=== PATIENT | male | born 1990 | race Caucasian/White ===

== ENCOUNTER 2021-09-20 12:37 | Emergency (ER) | payer MEDICARE, OTHER ==
[2021-09-20 12:46] VITALS: BP 136/86; PULSE 111; RESP 18; TEMP 98.6
--- NOTE | 2021-09-20 12:54 | ED ---
Psych HPI - General Source: patient, EMS, RN notes reviewed Mode of arrival: EMS Limitations: no limitations <Pierre Tompkins - Last Filed: 09/20/21 12:52> <Michael Lagos - Last Filed: 09/20/21 17:17> - General Chief Complaint: Psychiatric Symptoms Stated Complaint: Mental Health Time Seen by Provider: 09/20/21 12:44 - History of Present Illness Initial Comments: 31-year-old male presents emergency Department via EMS chief complaint of depression, suicidal ideation. Patient is not very forthcoming information. He states that he cut his left wrist because he wanted a ride to the hospital he states he is soft and psychiatrists he will not discuss what is wrong with him. Patient denies any alcohol abuse but disease alcohol recent, she states he smoked marijuana. Patient denies any chest pain patient denies any fevers or chills patient offers no complaints. (Pierre Tompkins) - Related Data Allergies Allergy/AdvReac Type Severity Reaction Status Date / Time No Known Allergies Allergy Verified 09/20/21 13:41 Review of Systems ROS Other: All systems not noted in ROS Statement are negative. <Pierre Tompkins - Last Filed: 09/20/21 12:52> ROS Other: All systems not noted in ROS Statement are negative. <Michael Lagos - Last Filed: 09/20/21 17:17> ROS Statement: Those systems with pertinent positive or pertinent negative responses have been documented in the HPI. Past Medical History Past Medical History: Hypertension History of Any Multi-Drug Resistant Organisms: None Reported Past Surgical History: Bowel Resection Past Psychological History: Anxiety, Depression, Schizophrenia Smoking Status: Current every day smoker Past Alcohol Use History: Daily Past Drug Use History: Marijuana <Pierre Tompkins - Last Filed: 09/20/21 12:52> General Exam Limitations: no limitations General appearance: alert, in no apparent distress Head exam: Present: atraumatic, normocephalic, normal inspection Eye exam: Present: normal appearance, PERRL, EOMI. Absent: scleral icterus, conjunctival injection, periorbital swelling ENT exam: Present: normal exam, normal oropharynx, mucous membranes moist Neck exam: Present: normal inspection, full ROM. Absent: tenderness, meningismus, lymphadenopathy Respiratory exam: Present: normal lung sounds bilaterally. Absent: respiratory distress, wheezes, rales, rhonchi, stridor Cardiovascular Exam: Present: regular rate, normal rhythm, normal heart sounds. Absent: systolic murmur, diastolic murmur, rubs, gallop, clicks Extremities exam: Present: other (Left wrist there is a small superficial laceration) Neurological exam: Present: alert, oriented X3, motor sensory deficit Psychiatric exam: Present: depressed, flat affect Skin exam: Present: warm, dry, intact, normal color. Absent: rash <Pierre Tompkins - Last Filed: 09/20/21 12:52> Course Vital Signs 09/20/21 12:40 Temperature 98.6 F Pulse Rate 111 H Respiratory 18 Rate Blood Pressure 136/86 O2 Sat by Pulse 97 Oximetry Medical Decision Making <Michael Lagos - Last Filed: 09/20/21 17:17> - Medical Decision Making EPS evaluated the patient and determined the patient was safe to go home and the patient was in agreement with this. (Michael Lagos) Disposition <Pierre Tomkpins - Last Filed: 09/20/21 12:52> Is patient prescribed a controlled substance at d/c from ED?: No Time of Disposition: 17:17 <Michael Lagos - Last Filed: 09/20/21 17:17> Clinical Impression: Depression Disposition: HOME SELF-CARE Condition: Good Instructions (If sedation given, give patient instructions): Depression (ED) Referrals: Nonstaff,Physician [Primary Care Provider] - 1-2 days
[2021-09-20 17:46] LABS: Amphetamine Screen,Urine Not Detected (NotDetected); Barbiturate Screen,Urine Not Detected (NotDetected); Benzodiazepines Screen,Urine Not Detected (NotDetected); Cocaine Screen,Urine Not Detected (NotDetected); Methadone Screen, Urine Not Detected (NotDetected); Opiate Screen,Urine Not Detected (NotDetected); Oxycodone Screen, Urine Not Detected (NotDetected); Phencyclidine Screen,Urine Not Detected (NotDetected); Tricyclic Antidepressant,Urine Not Detected (NotDetected); Urn Cannabinoid Scrn Detected (NotDetected)
== END 2021-09-20 17:36 | disposition home or self-care (01) ==
LOC: EC 12:37
DX: F32.A Depression, unspecified (principal); I10 Essential (primary) hypertension; F17.200 Nicotine dependence, unspecified, uncomplicated
CPT/HCPCS: 80306; 82075; 99285

== ENCOUNTER 2022-12-07 15:29 | Emergency (ER) | payer MEDICARE, OTHER ==
[2022-12-07] MEDS ORDERED: PROPARACAINE 0.5% OPHTH DROPS 15 ML BTL LEFT EYE STA (15:31)
[2022-12-07] MEDS ORDERED: FLUORESCEIN STRIPS 1 MG STRIP LEFT EYE ONE (15:31)
--- NOTE | 2022-12-07 15:32 | ED ---
General Adult HPI - General Source: patient, RN notes reviewed Mode of arrival: ambulatory Limitations: no limitations <Pierre Tompkins - Last Filed: 12/07/22 15:31> - General Source: patient, RN notes reviewed Mode of arrival: ambulatory Limitations: no limitations <Mary Kwok - Last Filed: 12/08/22 00:13> - General Stated complaint: eye pain Time Seen by Provider: 12/07/22 15:31 - History of Present Illness Initial comments: 32-year-old male presents emergency from EMS chief complaint of left eye irritation. He states that his been rubbing his eyes significantly states his left eye is painful and states he feels like symptoms in his left eye. Patient denies any visual disturbance. He states is tearing, drainage at times. (Pierre Tompkins) 32-year-old male presents emergency department chief complaint of left eye irritation with associated eyelid redness and pain x2 days. He admits to yellow drainage from the eye and crusting when he wakes up in the morning. He reports no changes in his vision. Denies pain with eye movements. Denies fever, chills. (Mary Kwok) - Related Data Home Medications Medication Instructions Recorded Confirmed No Known Home Medications 09/20/21 09/20/21 Allergies Allergy/AdvReac Type Severity Reaction Status Date / Time No Known Allergies Allergy Verified 09/20/21 13:41 Review of Systems ROS Other: All systems not noted in ROS Statement are negative. <Pierre Tompkins - Last Filed: 12/07/22 15:31> ROS Other: All systems not noted in ROS Statement are negative. <Mary Kwok - Last Filed: 12/08/22 00:13> ROS Statement: Those systems with pertinent positive or pertinent negative responses have been documented in the HPI. Past Medical History Past Medical History: Hypertension History of Any Multi-Drug Resistant Organisms: None Reported Past Surgical History: Bowel Resection Past Psychological History: Anxiety, Depression, Schizophrenia Smoking Status: Current every day smoker Past Alcohol Use History: Daily Past Drug Use History: Marijuana <Pierre Tompkins - Last Filed: 12/07/22 15:31> General Exam <Pierre Tompkins - Last Filed: 12/07/22 15:31> Limitations: no limitations General appearance: alert, in no apparent distress Head exam: Present: atraumatic, normocephalic, normal inspection Eye exam: Present: PERRL, EOMI, conjunctival injection, periorbital swelling ENT exam: Present: normal exam, normal oropharynx Neck exam: Present: normal inspection. Absent: tenderness, meningismus, lymphadenopathy Respiratory exam: Present: normal lung sounds bilaterally. Absent: respiratory distress, wheezes, rales, rhonchi, stridor Cardiovascular Exam: Present: regular rate, normal rhythm, normal heart sounds. Absent: systolic murmur, diastolic murmur, rubs, gallop, clicks exam: Present: other (flesh colored papule with purulent drainage on right sided penile shaft). Absent: testicular tenderness, scrotal swelling Back exam: Present: normal inspection Neurological exam: Present: alert, oriented X3 Psychiatric exam: Present: normal affect, normal mood Skin exam: Present: warm, dry, intact, normal color. Absent: rash <Mary Kwok - Last Filed: 12/08/22 00:13> - General Exam Comments Initial Comments: Visual Physical Exam Vital signs reviewed General: Well-appearing, nontoxic, no acute distress. Head: Normocephalic, atraumatic Eyes: PERRLA, EOMI ENT: Airway patent Chest: Nonlabored breathing Skin: No visual rash, normal skin tone Neuro: Alert and oriented 3 Musculoskeletal: No gross abnormalities (Pierre Tompkins) Course Vital Signs 12/07/22 12/07/22 16:16 19:25 Temperature 98.3 F Pulse Rate 102 H 85 Respiratory 20 18 Rate Blood Pressure 114/78 112/69 O2 Sat by Pulse 98 98 Oximetry Medical Decision Making <Pierre Tompkins - Last Filed: 12/07/22 15:31> <Mary Kwok - Last Filed: 12/08/22 00:13> - Medical Decision Making I performed the quick note portion of this chart signed Pierre Tompkins PA-C (Pierre Tompkins) Was pt. sent in by a medical professional or institution ([facility], PACE ANALYST, urgent care, hospital, or jail...) When possible be specific @ -No Did you speak to anyone other than the patient for history (EMS, parent, family, police, friend...)? What history was obtained from this source @ -No Did you review nursing and triage notes (agree or disagree)? Why? @ -I reviewed and agree with nursing and triage notes Were old charts reviewed (outside hosp., previous admission, EMS record, old EKG, old radiological studies, urgent care reports/EKG's, jail records)? Report findings @ -No old charts were reviewed Differential Diagnosis (chest pain, altered mental status, abdominal pain women, abdominal pain men, vaginal bleeding, weakness, fever, dyspnea, syncope, headache, dizziness, GI bleed, back pain, seizure, CVA, palpatations, mental health, musculoskeletal)? @ -Conjunctivitis, iritis, preseptal cellulitis, orbital cellulitis, angle closure glaucoma, this list is not all inclusive EKG interpreted by me (3pts min.). @ -none X-rays interpreted by me (1pt min.). @ -None done CT interpreted by me (1pt min.). @ -None done U/S interpreted by me (1pt. min.). @ -None done What testing was considered but not performed or refused? (CT, X-rays, U/S, labs)? Why? @ -None What meds were considered but not given or refused? Why? @ -None Did you discuss the management of the patient with other professionals (professionals i.e. , PA, PACE ANALYST, lab, RT, psych nurse, social work therapist, roll capper, teacher, [employer] revenue officer, rn case management)? Give summary @ -No Was smoking cessation discussed for >3mins.? @ -No Was critical care preformed (if so, how long)? @ -No Were there social determinants of health that impacted care today? How? (Homelessness, low income, unemployed, alcoholism, drug addiction, transportation, low edu. Level, literacy, decrease access to med. care, fdc, rehab)? @ -No Was there de-escalation of care discussed even if they declined (Discuss DNR or withdrawal of care, Hospice)? DNR status @ -No What co-morbidities impacted this encounter? (DM, HTN, Smoking, COPD, CAD, Cancer, CVA, ARF, Chemo, Hep., AIDS, mental health diagnosis, sleep apnea, morbid obesity)? @ -None Was patient admitted / discharged? Hospital course, mention meds given and route, prescriptions, significant lab abnormalities, going to OR and other pertinent info. @ -Discharged. Patient presented to emergency department chief complaint of left eye discharge, erythema 2-3 days. He states that when he wakes up in the morning his eyes crusted shut and he admits to drainage throughout the day. No proptosis, denies pain with eye movements. Fluorescein staining preformed and there was no evidence of corneal abrasion or dendritic pattern. Left eye pressure 11. Patient also complains of a sore on his penis that he noticed today. He states that it is not draining. This was drained with 18-gauge needle, purulent drainage was obtained, and wound culture, HSV swab was sent. We will call the patient with the results of this testing. Patient was given a dose of Rocephin IM and azithromycin. Patient will be started on ciprofloxacin eyedrops every 6 hours and follow up with ophthalmology. Patient stable at time of discharge. Case discussed with my attending, Dr. Mallory who also evaluated the patient and agrees with plan. Undiagnosed new problem with uncertain prognosis? @ -No Drug Therapy requiring intensive monitoring for toxicity (Heparin, Nitro, Insulin, Cardizem)? @ -No Were any procedures done? @ -No Diagnosis/symptom? @ -bacterial conjunctivitis Acute, or Chronic, or Acute on Chronic? @ -acute Uncomplicated (without systemic symptoms) or Complicated (systemic symptoms)? @ -uncomplicated Side effects of treatment? @ -No Exacerbation, Progression, or Severe Exacerbation? @ -No Poses a threat to life or bodily function? How? (Chest pain, USA, PA, pneumonia, PE, COPD, DKA, ARF, appy, cholecystitis, CVA, Diverticulitis, Homicidal, Suicidal, threat to staff... and all critical care pts) @ -No (Mary Kwok) Disposition <Pierre Tompkins - Last Filed: 12/07/22 15:31> Is patient prescribed a controlled substance at d/c from ED?: No Time of Disposition: 19:55 <Mary Kwok - Last Filed: 12/08/22 00:13> Clinical Impression: Bacterial conjunctivitis Disposition: HOME SELF-CARE Condition: Stable Instructions (If sedation given, give patient instructions): Conjunctivitis (ED) Additional Instructions: Please follow up with ophthalmology. Instill 2 eye drops in left eye every 6 hours for 7 days. Return to the emergency department for new or worsening symptoms. Referrals: Eriberto Bowers MD [Primary Care Provider] - 1-2 days Ernesto Morris MD [STAFF PHYSICIAN] - 1-2 days Susan Thomson MD [STAFF PHYSICIAN] - 1-2 days Berto Storey MD [STAFF PHYSICIAN] - 1-2 days
[2022-12-07 16:28] VITALS: TEMP 98.3
[2022-12-07] MEDS ORDERED: CIPROFLOXACIN 0.3% OPHTH SOLN 5 ML BTL BOTH EYES STA (19:14)
[2022-12-07] MEDS ORDERED: cefTRIAXone 250 MG VIAL IM STA (19:51)
[2022-12-07] MEDS ORDERED: AZITHROMYCIN 500 MG TAB PO STA (19:51)
[2022-12-07 20:21] VITALS: BP 112/69; PULSE 85; RESP 18
== END 2022-12-07 20:22 | disposition home or self-care (01) ==
LOC: EC 15:29
DX: H10.9 Unspecified conjunctivitis (principal); F17.200 Nicotine dependence, unspecified, uncomplicated; F12.90 Cannabis use, unspecified, uncomplicated; I10 Essential (primary) hypertension; Z86.59 Personal history of other mental and behavioral disorders
CPT/HCPCS: 87529; 87070; 87205; 99283; 96372; J0696

== ENCOUNTER 2023-01-30 04:48 | Emergency (ER) | payer MEDICARE, OTHER ==
[2023-01-30 05:12] VITALS: RESP 18
--- NOTE | 2023-01-30 06:54 | ED ---
Back Pain HPI - General Source: patient, RN notes reviewed Limitations: no limitations <Pierre Tompkins - Last Filed: 01/30/23 06:53> <Tran Perez - Last Filed: 01/30/23 08:52> - General Chief Complaint: Back Pain/Injury Stated Complaint: Back Pain Time Seen by Provider: 01/30/23 06:53 - History of Present Illness Initial Comments: 32-year-old male presents emergency Department with chief complaint of low back pain. Patient states that he has had back pain increased last few weeks. Patient denies any significant trauma denies any bowel complaints incontinence retention or saddle anesthesias. Patient states he believes he is being poisoned through his marijuana that he uses daily. Patient denies dysuria, hematuria, flank pain, abdominal pain (Pierre Tompkins) Patient is a 32-year-old male presenting to the ER with a chief complaint of low back pain. Patient states this has been going on for a couple of weeks now. Patient admits to smoking rolled cigarrettes and marijuana daily which she believes he has been poisoned. He also admits to snorting meth last time was about 2 weeks ago. He denies trauma, bowel/bladder incontinence, saddle paresthesias, fevers, IV drug use. Denies chest pain, shortness of breath, abdominal pain, urinary complaints. (Tran Perez) - Related Data Previous Rx's Medication Instructions Recorded Cyclobenzaprine [Flexeril] 10 mg PO TID PRN #15 tab 01/30/23 Allergies Allergy/AdvReac Type Severity Reaction Status Date / Time No Known Allergies Allergy Verified 09/20/21 13:41 Review of Systems ROS Other: All systems not noted in ROS Statement are negative. <Pierre Tompkins - Last Filed: 01/30/23 06:53> ROS Other: All systems not noted in ROS Statement are negative. <Tran Perez - Last Filed: 01/30/23 08:52> ROS Statement: Those systems with pertinent positive or pertinent negative responses have been documented in the HPI. Past Medical History Past Medical History: Hypertension History of Any Multi-Drug Resistant Organisms: None Reported Past Surgical History: Bowel Resection Past Psychological History: Anxiety, Depression, Schizophrenia Smoking Status: Current every day smoker Past Alcohol Use History: Daily Past Drug Use History: Marijuana <Pierre Tompkins - Last Filed: 01/30/23 06:53> General Exam Limitations: no limitations General appearance: alert, in no apparent distress Head exam: Present: atraumatic, normocephalic, normal inspection <Pierre Tompkins - Last Filed: 01/30/23 06:53> Respiratory exam: Present: normal lung sounds bilaterally, wheezes (bilateral mild wheezing noted lower lungs ). Absent: respiratory distress, rales, rhonchi, stridor Cardiovascular Exam: Present: regular rate, normal rhythm, normal heart sounds. Absent: systolic murmur, diastolic murmur, rubs, gallop, clicks GI/Abdominal exam: Present: soft, normal bowel sounds. Absent: distended, tenderness, guarding, rebound, rigid Extremities exam: Present: normal inspection, full ROM, normal capillary refill. Absent: tenderness, pedal edema, joint swelling, calf tenderness Back exam: Present: normal inspection, tenderness (lumbar spine; pain elicited with bilateral striaght leg raise ) Neurological exam: Present: alert, oriented X3, CN II-XII intact Skin exam: Present: warm, dry, intact, normal color. Absent: rash <Tran Perez - Last Filed: 01/30/23 08:52> - General Exam Comments Initial Comments: Visual Physical Exam Vital signs reviewed General: Well-appearing, nontoxic, no acute distress. Head: Normocephalic, atraumatic Eyes: PERRLA, EOMI ENT: Airway patent Chest: Nonlabored breathing Skin: No visual rash, normal skin tone Neuro: Alert and oriented 3 Musculoskeletal: No gross abnormalities (Pierre Tompkins) Course Vital Signs 01/30/23 04:51 Temperature 98.6 F Pulse Rate 94 Respiratory 18 Rate Blood Pressure 132/68 O2 Sat by Pulse 100 Oximetry Medical Decision Making <Pierre Tompkins - Last Filed: 01/30/23 06:53> - Radiology Data Radiology results: report reviewed, image reviewed <Tran Perez - Last Filed: 01/30/23 08:52> - Medical Decision Making I performed a quick note portion of this chart signed Pierre Tompkins PA-C (Pierre Tompkins) Was pt. sent in by a medical professional or institution ([facility], RV REPAIR TECHNICIAN, urgent care, hospital, or jail...) When possible be specific @ -No Did you speak to anyone other than the patient for history (EMS, parent, family, police, friend...)? What history was obtained from this source @ -No Did you review nursing and triage notes (agree or disagree)? Why? @ -I reviewed and agree with nursing and triage notes Were old charts reviewed (outside hosp., previous admission, EMS record, old EKG, old radiological studies, urgent care reports/EKG's, jail records)? Report findings @ -No old charts were reviewed Differential Diagnosis (chest pain, altered mental status, abdominal pain women, abdominal pain men, vaginal bleeding, weakness, fever, dyspnea, syncope, headache, dizziness, GI bleed, back pain, seizure, CVA, palpatations, mental health, musculoskeletal)? @ -[Differential Back Pain: Strain, zoster, cauda equina syndrome, epidural abscess, vertebral ost eomyelitis, discitis, fracture, subluxation, disc herniation, DJD, spinal stenosis, dissection, AAA, pancreatitis, peptic ulcer disease, pyelonephritis, kidney stone, this is not meant to be an all-inclusive EKG interpreted by me (3pts min.). @ -None X-rays interpreted by me (1pt min.). @ -X-ray of lumbar spine significant for mild multilevel disc degeneration. No acute fracture noted. CT interpreted by me (1pt min.). @ -None done U/S interpreted by me (1pt. min.). @ -None done What testing was considered but not performed or refused? (CT, X-rays, U/S, labs)? Why? @ -None What meds were considered but not given or refused? Why? @ -None Did you discuss the management of the patient with other professionals (professionals i.e. , PA, RV REPAIR TECHNICIAN, lab, RT, psych nurse, social services analyst, breaking machine operator, teacher, ict help desk officer, residential case manager)? Give summary @ -No Was smoking cessation discussed for >3mins.? @ -No Was critical care preformed (if so, how long)? @ -No Were there social determinants of health that impacted care today? How? (Homelessness, low income, unemployed, alcoholism, drug addiction, transportation, low edu. Level, literacy, decrease access to med. care, long-term, rehab)? @ -No Was there de-escalation of care discussed even if they declined (Discuss DNR or withdrawal of care, Hospice)? DNR status @ -No What co-morbidities impacted this encounter? (DM, HTN, Smoking, COPD, CAD, Cancer, CVA, ARF, Chemo, Hep., AIDS, mental health diagnosis, sleep apnea, morbid obesity)? @ -None Was patient admitted / discharged? Hospital course, mention meds given and route, prescriptions, significant lab abnormalities, going to OR and other pertinent info. @ -Patient is a 32-year-old male presented ER with chief complaint of back pain. On exam, there were no red flag symptoms but mild tenderness to palpation of lumbar spine. Patient was given IM Toradol for pain control. X-ray of lumbar spine significant for mild multilevel disc degeneration. No acute fracture noted. Patient will be discharged home with 10 mg Flexeril and instructed to take [id number] Tylenol and Motrin. Patient to follow-up with PCP for further care. Patient expressed understanding with care plan. Undiagnosed new problem with uncertain prognosis? @ -No Drug Therapy requiring intensive monitoring for toxicity (Heparin, Nitro, Insulin, Cardizem)? @ -No Were any procedures done? @ -No Diagnosis/symptom? @ -Degenerative disc disease/muscle spasm Acute, or Chronic, or Acute on Chronic? @ -Acute Uncomplicated (without systemic symptoms) or Complicated (systemic symptoms)? @ -Uncomplicated Side effects of treatment? @ -No Exacerbation, Progression, or Severe Exacerbation? @ -No Poses a threat to life or bodily function? How? (Chest pain, USA, AR, pneumonia, PE, COPD, DKA, ARF, appy, cholecystitis, CVA, Diverticulitis, Homicidal, Suicidal, threat to staff... and all critical care pts) @ -No (Tran Perez) Disposition <Pierre Tompkins - Last Filed: 01/30/23 06:53> Is patient prescribed a controlled substance at d/c from ED?: No Decision Time: 08:52 <Tran Perez - Last Filed: 01/30/23 08:52> Clinical Impression: Strain of lumbar region, Degeneration of intervertebral disc Disposition: HOME SELF-CARE Condition: Stable Instructions (If sedation given, give patient instructions): Acute Low Back Pain (ED) Additional Instructions: Please return to the Emergency Department if symptoms worsen or any other concerns. Follow up with PCP for further care. Prescriptions: Cyclobenzaprine [Flexeril] 10 mg PO TID PRN #15 tab PRN Reason: Muscle Spasm Referrals: Eriberto Bowers MD [Primary Care Provider] - 1-2 days
--- NOTE | 2023-01-30 07:24 | XR ---
EXAMINATION TYPE: XR lumbar spine 2 or 3V DATE OF EXAM: 01/30/2023 7:18 AM CLINICAL INDICATION:Male, 32 years old with history of pain; [facility] COMPARISON: None TECHNIQUE: XR lumbar spine 2 or 3V - Frontal, lateral and coned in L5-S1 lateral views of the spine. FINDINGS: No evidence of any acute osseous pathology. No evidence of loss of vertebral body height i s seen. There is normal alignment of the lumbar vertebral bodies. Mild scattered disc space narrowing . Multilevel marginal osteophyte formation throughout the visualized spine. There is facet joint arth ropathy throughout the spine. Scattered at least mild neural foraminal stenosis. IMPRESSION: 1. No acute fracture. 2. Mild multilevel disc degeneration. MRI
[2023-01-30] MEDS ORDERED: KETOROLAC 15 MG/ML 1 ML VIAL IM STA (08:33)
[2023-01-30 09:28] VITALS: BP 120/76; PULSE 72; TEMP 98
== END 2023-01-30 09:13 | disposition home or self-care (01) ==
LOC: EC 04:48
DX: S39.012A Strain of muscle, fascia and tendon of lower back, initial encounter (principal); M51.36 Other intervertebral disc degeneration, lumbar region; I10 Essential (primary) hypertension; F17.200 Nicotine dependence, unspecified, uncomplicated; F12.90 Cannabis use, unspecified, uncomplicated; Z86.59 Personal history of other mental and behavioral disorders; X58.XXXA Exposure to other specified factors, initial encounter
CPT/HCPCS: 72100; 99284; 96372; J1885

== ENCOUNTER 2023-02-07 14:37 | Inpatient (IN) | payer MEDICARE, MEDICAID ==
--- NOTE | 2023-02-07 16:38 | ED ---
Psych HPI - General Source: police Mode of arrival: ambulatory <RajeshAntwan - Last Filed: 02/07/23 16:49> - General Source: patient, RN notes reviewed, old records reviewed <Michael Lagos - Last Filed: 02/07/23 20:29> - General Chief Complaint: Psychiatric Symptoms Stated Complaint: ETOH,Mental Health Petition Time Seen by Provider: 02/07/23 18:30 - History of Present Illness Initial Comments: 32-year-old male brought to the emergency department for psychiatric evaluati on.Patient admitting to alcohol use. Denies suicidality or homicidality. (Antwan Mena) This a 32-year-old male who presents to the emergency department intoxicated. Patient states police were called his apartment when they got there he was diaphoretic and he had no suicidal or homicidal ideations. Patient denies hearing any voices he states he does not take his psychiatric medications but he doesn't have to. Patient states he just drinks too much. Patient states he has some paranoid thoughts occasionally but he thinks most the time he believes it secondary to his schizophrenia. Patient denies any physical complaints today. Patient denies any fever chills or cough patient denies any chest pain difficulty breathing patient denies any abdominal pain patient denies nausea vomiting diarrhea (Michael Lagos) - Related Data Previous Rx's Medication Instructions Recorded Cyclobenzaprine [Flexeril] 10 mg PO TID PRN #15 tab 01/30/23 Allergies Allergy/AdvReac Type Severity Reaction Status Date / Time No Known Allergies Allergy Verified 09/20/21 13:41 Review of Systems ROS Other: All systems not noted in ROS Statement are negative. <RajeshAntwan - Last Filed: 02/07/23 16:49> ROS Other: All systems not noted in ROS Statement are negative. <Michael Lagos - Last Filed: 02/07/23 20:29> ROS Statement: Those systems with pertinent positive or pertinent negative responses have been documented in the HPI. Past Medical History Past Medical History: Hypertension History of Any Multi-Drug Resistant Organisms: None Reported Past Surgical History: Bowel Resection Past Psychological History: Anxiety, Depression, Schizophrenia Smoking Status: Current every day smoker Past Alcohol Use History: Daily Past Drug Use History: Marijuana <RajeshAntwan - Last Filed: 02/07/23 16:49> General Exam <Michael Lagos - Last Filed: 02/07/23 20:29> - General Exam Comments Initial Comments: GENERAL: Patient is well-developed and well-nourished. Patient is nontoxic and well- hydrated and is in no acute distress. Patient appears intoxicated ENT: Neck is soft and supple. No significant lymphadenopathy is noted. Oropharynx is clear. Moist mucous membranes. Neck has full range of motion without eliciting any pain. EYES: The sclera were anicteric and conjunctiva were pink and moist. Extraocular movements were intact and pupils were equal round and reactive to light. Eyelids were unremarkable. PULMONARY: Unlabored respirations. Good breath sounds bilaterally. No audible rales rhonchi or wheezing was noted. CARDIOVASCULAR: There is a regular rate and rhythm without any murmurs gallops or rubs. ABDOMEN: Soft and nontender with normal bowel sounds. SKIN: Skin is clear with no lesions or rashes and otherwise unremarkable. NEUROLOGIC: Patient is alert and oriented x3. Cranial nerves II through XII are grossly intact. Motor and sensory are also intact. Normal speech, volume and content. Symmetrical smile. MUSCULOSKELETAL: Normal extremities with adequate strength and full range of motion. LYMPHATICS: No significant lymphadenopathy is noted PSYCHIATRIC: Normal psychiatric evaluation. Patient denies suicidal or homicidal ideations. Patient denies seeing or hearing anything abnormal. Patient states occasionally his little paranoid but he understands is probably his schizophrenia (Michael Lagos) Course Vital Signs 02/07/23 15:43 Temperature 98 F Pulse Rate 85 Respiratory 16 Rate Blood Pressure 140/96 O2 Sat by Pulse 98 Oximetry Medical Decision Making <Antwan Mena - Last Filed: 02/07/23 16:49> - Lab Data Result diagrams: 02/07/23 18:41 02/07/23 18:41 <Michael Lagos - Last Filed: 02/07/23 20:29> - Medical Decision Making Visual Physical Exam Vital signs reviewed General: Well-appearing, nontoxic, no acute distress. Head: Normocephalic, atraumatic Eyes: PERRLA, EOMI ENT: Airway patent Chest: Nonlabored breathing Skin: No visual rash, normal skin tone Neuro: Alert and oriented 3 Musculoskeletal: No gross abnormalities Signed by Antwan Mena PAC (Antwan Mena) Was pt. sent in by a medical professional or institution ([facility], FINANCIAL ADMINISTRATOR, urgent care, hospital, or detention...) When possible be specific @ -Police brought the patient in Did you speak to anyone other than the patient for history (EMS, parent, family, police, friend...)? What history was obtained from this source @ -Police gave the history to nursing and filled out a petition which I read Did you review nursing and triage notes (agree or disagree)? Why? @ -I reviewed and agree with nursing and triage notes Were old charts reviewed (outside hosp., previous admission, EMS record, old EKG, old radiological studies, urgent care reports/EKG's, detention records)? Report findings @ -I reviewed prior charts on this patient Differential Diagnosis (chest pain, altered mental status, abdominal pain women, abdominal pain men, vaginal bleeding, weakness, fever, dyspnea, syncope, headache, dizziness, GI bleed, back pain, seizure, CVA, palpatations, mental health, musculoskeletal)? @ -Differential Mental Health Depression, anxiety, bipolar, psychosis, schizophrenia, borderline personality, situational depression, adjustment disorder, behavioral disorder, brain tumor, malingering, substance abuse, encephalopathy, medication reaction, dementia, hypothyroidism, degenerative neurologic disorder, lupus.... This is not meant to be all-inclusive list EKG interpreted by me (3pts min.). @ -As above X-rays interpreted by me (1pt min.). @ -None done CT interpreted by me (1pt min.). @ -None done U/S interpreted by me (1pt. min.). @ -None done What testing was considered but not performed or refused? (CT, X-rays, U/S, l abs)? Why? @ -None What meds were considered but not given or refused? Why? @ -None Did you discuss the management of the patient with other professionals (professionals i.e. [facility], FINANCIAL ADMINISTRATOR, lab, RT, psych nurse, social and political studies professor, applications support lead, teacher, command center officer, egg caser)? Give summary @ -I spoke with the psychiatric nurse and patient will be admitted but will need to be transferred Was smoking cessation discussed for >3mins.? @ -No Was critical care preformed (if so, how long)? @ -No Were there social determinants of health that impacted care today? How? (Homelessness, low income, unemployed, alcoholism, drug addiction, transportation, low edu. Level, literacy, decrease access to med. care, [place] [facility], rehab)? @ -No Was there de-escalation of care discussed even if they declined (Discuss DNR or withdrawal of care, Hospice)? DNR status @ -No What co-morbidities impacted this encounter? (DM, HTN, Smoking, COPD, CAD, Cancer, CVA, ARF, Chemo, Hep., AIDS, mental health diagnosis, sleep apnea, morbid obesity)? @ -None Was patient admitted / discharged? Hospital course, mention meds given and route, prescriptions, significant lab abnormalities, going to OR and other pertinent info. @ -I filled out a clinical certification for the patient's transfer or admission. Undiagnosed new problem with uncertain prognosis? @ -No Drug Therapy requiring intensive monitoring for toxicity (Heparin, Nitro, Insulin, Cardizem)? @ -No Were any procedures done? @ -No Diagnosis/symptom? @ -Noncompliant with psych meds Acute, or Chronic, or Acute on Chronic? @ -Acute Uncomplicated (without systemic symptoms) or Complicated (systemic symptoms)? @ -Complicated Side effects of treatment? @ -No Exacerbation, Progression, or Severe Exacerbation? @ -No Poses a threat to life or bodily function? How? (Chest pain, USA, GA, pneumonia, PE, COPD, DKA, ARF, appy, cholecystitis, CVA, Diverticulitis, Homicidal, Suicidal, threat to staff... and all critical care pts) @ -No Diagnosis/symptom? @ -Paranoid delusions Acute, or Chronic, or Acute on Chronic? @ -Acute Uncomplicated (without systemic symptoms) or Complicated (systemic symptoms)? @ -Complicated Side effects of treatment? @ -none Exacerbation, Progression, or Severe Exacerbation] @ -no Poses a threat to life or bodily function? @ -no (Michael Lagos) - Lab Data Lab Results 02/07/23 02/07/23 02/07/23 Range/Units 18:41 18:41 18:41 WBC 4.7 (3.8-10.6) k/uL RBC 4.76 (4.30-5.90) m/uL Hgb 15.5 (13.0-17.5) gm/dL Hct 45.9 (39.0-53.0) % MCV 96.5 (80.0-100.0) fL MCH 32.7 (25.0-35.0) pg MCHC 33.9 (31.0-37.0) g/dL RDW 12.7 (11.5-15.5) % Plt Count 213 (150-450) k/uL MPV 7.9 Neutrophils % 60 % Lymphocytes % 30 % Monocytes % 4 % Eosinophils % 3 % Basophils % 0 % Neutrophils # 2.9 (1.3-7.7) k/uL Lymphocytes # 1.4 (1.0-4.8) k/uL Monocytes # 0.2 (0-1.0) k/uL Eosinophils # 0.1 (0-0.7) k/uL Basophils # 0.0 (0-0.2) k/uL Sodium 142 (137-145) mmol/L Potassium 4.7 (3.5-5.1) mmol/L Chloride 105 (98-107) mmol/L Carbon Dioxide 25 (22-30) mmol/L Anion Gap 12 mmol/L BUN 11 (9-20) mg/dL Creatinine 0.68 (0.66-1.25) mg/dL Est GFR (CKD-EPI)AfAm >90 (>60 ml/min/1.73 sqM) Est GFR (CKD-EPI)NonAf >90 (>60 ml/min/1.73 sqM) Glucose 119 H (74-99) mg/dL Calcium 9.4 (8.4-10.2) mg/dL Magnesium 1.9 (1.6-2.3) mg/dL Total Bilirubin 0.5 (0.2-1.3) mg/dL AST 29 (17-59) U/L ALT 23 (4-49) U/L Alkaline Phosphatase 63 (38-126) U/L Total Protein 7.6 (6.3-8.2) g/dL Albumin 4.7 (3.5-5.0) g/dL Urine Opiates Screen Detected H (NotDetected) Ur Oxycodone Screen Not Detected (NotDetected) Urine Methadone Screen Not Detected (NotDetected) Ur Propoxyphene Screen Not Detected (NotDetected) Ur Barbiturates Screen Not Detected (NotDetected) U Tricyclic Antidepress Not Detected (NotDetected) Ur Phencyclidine Scrn Not Detected (NotDetected) Ur Amphetamines Screen Not Detected (NotDetected) U Methamphetamines Scrn Not Detected (NotDetected) U Benzodiazepines Scrn Not Detected (NotDetected) Urine Cocaine Screen Not Detected (NotDetected) U Marijuana (THC) Screen Detected H (NotDetected) Serum Alcohol 91 mg/dL Disposition <Antwan Mena - Last Filed: 02/07/23 16:49> Time of Disposition: 20:29 <Michael Lagos - Last Filed: 02/07/23 20:29> Clinical Impression: Paranoid delusion, History of medication noncompliance Disposition: TRANSFER TO PSYCH HOSP/UNIT Referrals: Eriberto Bowers MD [Primary Care Provider] - 1-2 days
[2023-02-07] MEDS ORDERED: SODIUM CHLORIDE 0.9% 1,000 ML IV ONE (18:14)
[2023-02-07 18:55] LABS: Basophils % (A) 0 %; Eosinophils # (A) 0.1 k/uL (0-0.7); Eosinophils % (A) 3 %; HCT 45.9 % (39.0-53.0); HGB 15.5 gm/dL (13.0-17.5); Lymphocytes # (A) 1.4 k/uL (1.0-4.8); Lymphocytes % (A) 30 %; MCH 32.7 pg (25.0-35.0); MCHC 33.9 g/dL (31.0-37.0); MCV 96.5 fL (80.0-100.0); Mean Platelet Volume 7.9; Monocytes # (A) 0.2 k/uL (0-1.0); Monocytes % (A) 4 %; Neutrophils # (A) 2.9 k/uL (1.3-7.7); Neutrophils % (A) 60 %; Platelet Count 213 k/uL (150-450); RBC 4.76 m/uL (4.30-5.90); RDW 12.7 % (11.5-15.5); WBC 4.7 k/uL (3.8-10.6)
[2023-02-07 19:06] LABS: Amphetamine Screen,Urine Not Detected (NotDetected); Barbiturate Screen,Urine Not Detected (NotDetected); Benzodiazepines Screen,Urine Not Detected (NotDetected); Cocaine Screen,Urine Not Detected (NotDetected); Methadone Screen, Urine Not Detected (NotDetected); Opiate Screen,Urine Detected (NotDetected); Oxycodone Screen, Urine Not Detected (NotDetected); Phencyclidine Screen,Urine Not Detected (NotDetected); Tricyclic Antidepressant,Urine Not Detected (NotDetected); Urn Cannabinoid Scrn Detected (NotDetected)
[2023-02-07 19:09] LABS: ALT 23 U/L (4-49); AST 29 U/L (17-59); African American GFR (CKD) >90 (>60 ml/min/1.73 sqM); Albumin 4.7 g/dL (3.5-5.0); Alkaline Phosphatase 63 U/L (38-126); Anion Gap 12 mmol/L; Blood Urea Nitrogen 11 mg/dL (9-20); Calcium 9.4 mg/dL (8.4-10.2); Carbon Dioxide 25 mmol/L (22-30); Chloride 105 mmol/L (98-107); Glucose 119 mg/dL (74-99); Magnesium 1.9 mg/dL (1.6-2.3); Non-African American GFR(CKD) >90 (>60 ml/min/1.73 sqM); Potassium 4.7 mmol/L (3.5-5.1); Sodium 142 mmol/L (137-145); Total Bilirubin 0.5 mg/dL (0.2-1.3); Total Protein 7.6 g/dL (6.3-8.2)
[2023-02-07 19:21] LABS: Alcohol 91 mg/dL
[2023-02-07 23:59] LABS: Appearance,Urine Clear (Clear); Bilirubin,Urine Negative (Negative); Blood,Urine Negative (Negative); Color,Urine Light Yellow; Glucose,Urine (UA) Negative (Negative); Ketones,Urine Negative (Negative); Leukocyte Esterase,Urine Negative (Negative); Nitrite,Urine Negative (Negative); Protein,Urine Negative (Negative); Urobilinogen,Urine <2.0 mg/dL (<2.0)
[2023-02-08] MEDS ORDERED: LORazepam 1 MG TAB PO PRN
[2023-02-08] MEDS ORDERED: LORazepam 2 MG/ML INJ IM PRN
[2023-02-08] MEDS ORDERED: MAG HYDROX/AL HYDROX/SIMETH 30 ML CUP PO PRN
[2023-02-08] MEDS ORDERED: ACETAMINOPHEN TAB 325 MG TAB PO PRN
[2023-02-08] MEDS ORDERED: haloperidoL 5 MG TAB PO PRN
[2023-02-08] MEDS ORDERED: HALOPERIDOL LACTATE 5 MG/ML 1 ML VIAL IM PRN
[2023-02-08] MEDS: NICOTINE 14MG/24HR PATCH TRANSDERM SCH (08:13)
[2023-02-08] MEDS ORDERED: MAGNESIUM HYDROXIDE 2,400 MG/30 ML CUP PO PRN (09:00)
--- NOTE | 2023-02-08 11:16 | P.HP ---
Psychiatric H&P - . H&P Date: 02/08/23 History & Physical: Allergies Allergy/AdvReac Type Severity Reaction Status Date / Time No Known Allergies Allergy Verified 02/07/23 23:34 Vital Signs Temp 97.7 F 02/08/23 01:49 Pulse 61 02/08/23 01:49 Resp 16 02/08/23 01:49 BP 132/81 02/08/23 01:49 Pulse Ox 99 02/08/23 01:49 FiO2 Intake & Output 02/07/23 02/08/23 02/08/23 18:59 06:59 18:59 Weight 63.503 kg 61.49 kg Laboratory Last Values WBC 4.7 k/uL (3.8-10.6) 02/07/23 18:41 RBC 4.76 m/uL (4.30-5.90) 02/07/23 18:41 Hgb 15.5 gm/dL (13.0-17.5) 02/07/23 18:41 Hct 45.9 % (39.0-53.0) 02/07/23 18:41 MCV 96.5 fL (80.0-100.0) 02/07/23 18:41 MCH 32.7 pg (25.0-35.0) 02/07/23 18:41 MCHC 33.9 g/dL (31.0-37.0) 02/07/23 18:41 RDW 12.7 % (11.5-15.5) 02/07/23 18:41 Plt Count 213 k/uL (150-450) 02/07/23 18:41 MPV 7.9 02/07/23 18:41 Neutrophils % 60 % 02/07/23 18:41 Lymphocytes % 30 % 02/07/23 18:41 Monocytes % 4 % 02/07/23 18:41 Eosinophils % 3 % 02/07/23 18:41 Basophils % 0 % 02/07/23 18:41 Neutrophils # 2.9 k/uL (1.3-7.7) 02/07/23 18:41 Lymphocytes # 1.4 k/uL (1.0-4.8) 02/07/23 18:41 Monocytes # 0.2 k/uL (0-1.0) 02/07/23 18:41 Eosinophils # 0.1 k/uL (0-0.7) 02/07/23 18:41 Basophils # 0.0 k/uL (0-0.2) 02/07/23 18:41 Sodium 142 mmol/L (137-145) 02/07/23 18:41 Potassium 4.7 mmol/L (3.5-5.1) 02/07/23 18:41 Chloride 105 mmol/L (98-107) 02/07/23 18:41 Carbon Dioxide 25 mmol/L (22-30) 02/07/23 18:41 Anion Gap 12 mmol/L 02/07/23 18:41 BUN 11 mg/dL (9-20) 02/07/23 18:41 Creatinine 0.68 mg/dL (0.66-1.25) 02/07/23 18:41 Est GFR (CKD-EPI)AfAm >90 (>60 ml/min/1.73 sqM) 02/07/23 18:41 Est GFR (CKD-EPI)NonAf >90 (>60 ml/min/1.73 sqM) 02/07/23 18:41 Glucose 119 mg/dL (74-99) H 02/07/23 18:41 Calcium 9.4 mg/dL (8.4-10.2) 02/07/23 18:41 Magnesium 1.9 mg/dL (1.6-2.3) 02/07/23 18:41 Total Bilirubin 0.5 mg/dL (0.2-1.3) 02/07/23 18:41 AST 29 U/L (17-59) 02/07/23 18:41 ALT 23 U/L (4-49) 02/07/23 18:41 Alkaline Phosphatase 63 U/L (38-126) 02/07/23 18:41 Total Protein 7.6 g/dL (6.3-8.2) 02/07/23 18:41 Albumin 4.7 g/dL (3.5-5.0) 02/07/23 18:41 TSH 0.492 mIU/L (0.465-4.680) 02/07/23 18:41 Urine Color Light Yellow 02/07/23 18:41 Urine Appearance Clear (Clear) 02/07/23 18:41 Urine pH 6.0 (5.0-8.0) 02/07/23 18:41 Ur Specific [place] 1.010 (1.001-1.035) 02/07/23 18:41 Urine Protein Negative (Negative) 02/07/23 18:41 Urine Glucose (UA) Negative (Negative) 02/07/23 18:41 Urine Ketones Negative (Negative) 02/07/23 18:41 Urine Blood Negative (Negative) 02/07/23 18:41 Urine Nitrite Negative (Negative) 02/07/23 18:41 Urine Bilirubin Negative (Negative) 02/07/23 18:41 Urine Urobilinogen <2.0 mg/dL (<2.0) 02/07/23 18:41 Ur Leukocyte Esterase Negative (Negative) 02/07/23 18:41 Urine Opiates Screen Detected (NotDetected) H 02/07/23 18:41 Ur Oxycodone Screen Not Detected (NotDetected) 02/07/23 18:41 Urine Methadone Screen Not Detected (NotDetected) 02/07/23 18:41 Ur Propoxyphene Screen Not Detected (NotDetected) 02/07/23 18:41 Ur Barbiturates Screen Not Detected (NotDetected) 02/07/23 18:41 U Tricyclic Antidepress Not Detected (NotDetected) 02/07/23 18:41 Ur Phencyclidine Scrn Not Detected (NotDetected) 02/07/23 18:41 Ur Amphetamines Screen Not Detected (NotDetected) 02/07/23 18:41 U Methamphetamines Scrn Not Detected (NotDetected) 02/07/23 18:41 U Benzodiazepines Scrn Not Detected (NotDetected) 02/07/23 18:41 Urine Cocaine Screen Not Detected (NotDetected) 02/07/23 18:41 U Marijuana (THC) Screen Detected (NotDetected) H 02/07/23 18:41 Serum Alcohol 91 mg/dL 02/07/23 18:41 Coronavirus (PCR) Not Detected (Not Detectd) 02/07/23 22:24 02/08/23 10:57 IDENTIFYING DATA: Patient is a 32 yo male, currently lives alone in an apartment, single has 1. He collects SSD and SSI. HPI: Patient presented to the hospital on 02/07 was brought in by police. Patient was abusing alcohol apparently, not taking his psychiatric medications. Patient apparently was endorsing paranoia and also was delusional according to ER report. Patient blood alcohol level was 91, urine drugs and is positive for opiates and marijuana. Patient was admitted involuntarily to the mental health unit. According to the petition states that "Juan Carlos believes people/neighbors are trying to kill him, he is being poisoned, not eating, Aguilar placed around house for safety, yelling at people who were not there, not sleeping and A's, states something bad will happen if things don't change. States he has knives for when they come in to kill him, looking for cameras and smoke detectors, labile tearful crying and yelling all within minutes of one another." Provision goes on to state that patient has been not taking his psychiatric medications and using multiple substances and has been fairly paranoid and delusional and has a previous history of bipolar disorder. Patient was seen today by writer technical publications and agreeable to speak. He had very poor eye contact, endorsing poor insight and judgment. He states that "I think people are coming out to kill me". He went on to state that "they're coming after me" and believes that they're "strangers to me". He claims that they might be getting paid by someone and was speaking about a life insurance policy. He claims that it is possibly forged. He states that he has seen him before and is "a lot of people". He claims that [facility] was concerned about him and called the police to bring him into the hospital. States that he is not having depression this time, endorses anxiety. He claims that his sleep has been on and off, appetite as been fair. Patient denies any suicidal or homicidal ideations intent or plan. At this time patient denies any auditory or visual hallucinations. Patient is admitting to abusing "pain pills" and Suboxone off the street regularly. He states that he also smokes marijuana frequently, has been drinking alcohol about 1 pint of vodka a day. He denies any history of withdrawal symptoms and is denying any withdrawal symptoms at this time. Also endorses smoking cigarettes. PAST PSYCHIATRIC HISTORY: Patient states that she has a history of polysubstance abuse and bipolar/depression. Patient was previously on several different medications and last was seen by Dr. Richard at [facility] in August 2022 and was on Abilify Maintenna. He states it is previously psychiatrically hospitalized however does not remember when or where he went. Patient denies any current sychiatric outpatient follow-up. He states that he attempted to cut his wrists several years ago. Past Medical History: Hypertension History of Any Multi-Drug Resistant Organisms: None Reported Past Surgical History: Bowel Resection Past Psychological History: Anxiety, Depression, Schizophrenia Smoking Status: Current every day smoker Past Alcohol Use History: Daily Past Drug Use History: Marijuana ALLERGIES: as per EMR CHEMICAL DEPENDENCY HISTORY: as per HPI FAMILY PSYCHIATRIC/SUBSTANCE USE HISTORY: Claims that his mother father and also brother all have autism SOCIAL HISTORY: Patient was born and raised in [place] and moved all over [place]. He claims that he currently lives alone in an apartment, he is single he has 1 kid. He collects SSD and SSI. He apparently completed his GED. He [facility] that [facility] however does not remember discharges. MENTAL STATUS EXAM: General Appearance: Patient appears to be bald, stated age is alert, attempts to cooperate, hesitant. Patient appears to have poor hygiene and grooming. Poor eye contact Behavior: Patient is seated without any agitated behavior. Paranoia. Speech: Patient's speech is fluent and nonpressured. [place] Mood/Affect: Patient reports their mood is anxious and paranoid, affect is congruent and constricted. Suicidality/Homicidality: Patient denies having any homicidal ideation intent or plan. Denies any suicidal ideations intent or plan Perceptions: Patient denies any visual hallucinations and denies any auditory hallucinations Though content/process: Analyzing his need for medications and treatment, endorsing paranoia and delusions loosely associated. Memory and concentration: AOX3, grossly intact for the purposes of this session. Can spell "WORLD" backwards Judgment and insight: poor STRENGTHS/WEAKNESSES: strength is that patient is resilient. Weakness is that patient has poor judgment and is impulsive INTELLECT: average IMPRESSIONS: Schizoaffective disorder, bipolar type Opioid abuse Alcohol use disorder Cannabis use disorder Nicotine dependence PLAN: -Patient is admitted under involuntary status to MHU for stabilization of psychiatric symptoms and safety. Patient has not signed adult voluntary form and medication consent and is placed in patient's chart. A second certification was completed and along with petition will be filed for court. -Medications : Prolixin 2.5 mg twice a day for psychosis/mood stabilization. Trazodone 50 mg daily at bedtime for insomnia/mood. Librium 20 mg 3 times a day scheduled with plan to taper down for alcohol withdrawal -Ativan and Haldol PRN for agitation/aggression -Started thiamine, MVM for etoh use -CIWA protocol with Ativan PRN for ETOH withdrawal [-Patient was counselled on substance abuse, however patient states that he does not want to cut back on substances -Patient was informed of the risks, benefits and side effects of the medication, he refused to sign medication consent -Internal Medicine consult to perform medical evaluation and physical. -NRT - nicotine patch -SW on board for discharge planning. Encourage patient to participate in groups to work on coping skills. Will await deferral and court date. [] 02/08/23 11:07
[2023-02-08] MEDS: traZODone HCL 50 MG TAB PO SCH (20:25)
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
[2023-02-09 02:18] LABS: Chol/HDL Ratio 2.62 Ratio; LDL Cholesterol,Calculated 89.9 mg/dL (0.0-131.0); VLDL Calculation 15.86 mg/dL (5.00-40.00)
[2023-02-09] MEDS: NICOTINE 14MG/24HR PATCH TRANSDERM SCH (08:01)
--- NOTE | 2023-02-09 11:20 | P.PN ---
Progress Note - Text Progress Note Date: 02/09/23 Interval history: Patient was seen today wandering the hallways today and was taking part in megan ups. Patient states that he is still feeling somewhat anxious during the day, claims that his mood has been improving however. He claims that "I feel the exact same" and denied any progress in his psychiatric symptoms. Visually patient appears to be calmer, less agitated and paranoid today. He was more goal oriented and focused during the interview. He claims that he is taking his medications, denying any side effects or problems. We spoke more about the court process and also him speaking with an workers compensation defense attorney. He states that he is not having any auditory or visual hallucinations. Denies any suicidal or homicidal ideations intent or plan. In that he is sleeping fairly at nighttime, denies any changes in appetite. Mental status examination: General Appearance: Patient appears to be bald, stated age is alert, attempts to cooperate, hesitant. Patient appears to have improving hygiene and grooming. Improving eye contact Behavior: Patient is seated without any agitated behavior. less Paranoia. Speech: Patient's speech is fluent and nonpressured. [place], improving Mood/Affect: Patient reports their mood is anxious, affect is congruent and constricted. Suicidality/Homicidality: Patient denies having any homicidal ideation intent or plan. Denies any suicidal ideations intent or plan Perceptions: Patient denies any visual hallucinations and denies any auditory hallucinations Though content/process: Endorsing less paranoia and delusions today. [place], more goal oriented. Memory and concentration: AOX3, grossly intact for the purposes of this session Judgment and insight: poor, improving markedly IMPRESSIONS: Schizoaffective disorder, bipolar type Opioid abuse Alcohol use disorder Cannabis use disorder Nicotine dependence PLAN: -Patient is admitted under involuntary status to [facility] for stabilization of psychiatric symptoms and safety. Patient has not signed adult voluntary form and medication consent and is placed in patient's chart. A second certification was completed and along with petition will be filed for court. -Medications : Increased Prolixin 4 mg twice a day for psychosis/mood stabilization. Trazodone 50 mg daily at bedtime for insomnia/mood. decrease Librium 10 mg 4 times a day scheduled with plan to taper down for alcohol withdrawal -Ativan and Haldol PRN for agitation/aggression -Started thiamine, MVM for etoh use -WA protocol with Ativan PRN for ETOH withdrawal -NRT - nicotine patch -SW on board for discharge planning. Encourage patient to participate in groups to work on coping skills. Will await deferral and court date. patient is refusing rehab at this time.
[2023-02-09] MEDS: hydrOXYzine pamoate 25 MG CAP PO PRN ×2 (11:59→20:12)
[2023-02-09] MEDS: traZODone HCL 50 MG TAB PO SCH (20:11)
[2023-02-10] MEDS: NICOTINE 14MG/24HR PATCH TRANSDERM SCH (07:56)
[2023-02-10] MEDS: hydrOXYzine pamoate 25 MG CAP PO PRN ×2 (09:26→18:22)
--- NOTE | 2023-02-10 14:21 | P.PN ---
Progress Note - Text Progress Note Date: 02/10/23 Interval history: Patient was seen today living in [place] and was agreeable to speak short story writer today. Patient claims that he is doing a bit better with regards to his mood however continues to state that he does have some anxiety during the day. Claims that he took Vistaril however data. Tired. We spoke about transitioning on to Prolixin and long-acting injection and patient was agreeable to this. He was less focused on delusions today, continues to believe that "someone is out there and they may be out to harm me". He claims that he has been trying to go to some groups. States that he feels a bit tired today. We spoke more about discharge planning and transitioning onto long-acting injection. Claims his appetite is fair, sleep has been fair at nighttime. She deferred with his shoe lining fitter. He states that he is not having any auditory or visual hallucinations. Denies any suicidal or homicidal ideations intent or plan. In that he is sleeping fairly at nighttime, denies any changes in appetite. Mental status examination: General Appearance: Patient appears to be bald, stated age is alert, attempts to cooperate, hesitant. Patient appears to have improving hygiene and grooming. Improving eye contact Behavior: Patient is seated without any agitated behavior. less Paranoia. Speech: Patient's speech is fluent and nonpressured. [place], improving Mood/Affect: Patient reports their mood is anxious, affect is congruent and constricted. Suicidality/Homicidality: Patient denies having any homicidal ideation intent or plan. Denies any suicidal ideations intent or plan Perceptions: Patient denies any visual hallucinations and denies any auditory hallucinations Though content/process: Endorsing less paranoia today. [place], more goal oriented. Memory and concentration: AOX3, grossly intact for the purposes of this session Judgment and insight: poor, improving markedly IMPRESSIONS: Schizoaffective disorder, bipolar type Opioid abuse Alcohol use disorder Cannabis use disorder Nicotine dependence PLAN: -Patient is admitted under involuntary status to [facility] for stabilization of psychiatric symptoms and safety. Patient has not signed adult voluntary form and medication consent and is placed in patient's chart. A second certification was completed and along with petition will be filed for court. -Medications : Increased Prolixin 5 mg twice a day for psychosis/mood stabilization. will give Prolixin D DOMINGO on monday to help ensure compliance. Trazodone 50 mg daily at bedtime for insomnia/mood. decrease Librium 10 mg 3 times a day scheduled with plan to taper down for alcohol withdrawal over the weekend. -Ativan and Haldol PRN for agitation/aggression -Started thiamine, MVM for etoh use -CIWA protocol with Ativan PRN for ETOH withdrawal -NRT - nicotine patch -SW on board for discharge planning. Encourage patient to participate in groups to work on coping skills. Patient deferred with his shoe lining fitter. patient is refusing rehab at this time. Likely discharge after patient is transitioned onto long-acting injection, likely Monday.
[2023-02-10] MEDS: traZODone HCL 50 MG TAB PO SCH (19:48)
[2023-02-11] MEDS: IBUPROFEN 600 MG TAB PO PRN (07:54)
[2023-02-11] MEDS: NICOTINE 14MG/24HR PATCH TRANSDERM SCH (08:08)
--- NOTE | 2023-02-11 08:55 | P.PN ---
Subjective Progress Note Date: 02/11/23 Principal diagnosis: IMPRESSIONS: Schizoaffective disorder, bipolar type Opioid abuse Alcohol use disorder Cannabis use disorder Nicotine dependence Interval history: Patient was seen today. He was lying on the floor in the hallway but his legs are sore and there are no benches. I think he was waiting for medication. He was and was agreeable to speak hand sign writer today. Patient claims that he is doing a bit better with regards to his mood . He has cooperative. Much resigned to doing whatever we asked him to do. However is very honest and says he likes drinking alcohol and has no intention of quitting. He was complaining about poor sleep which comes from not using alcohol and all the damage alcohol did to his brain I told her take about a year for that part of his brain to be fully healed and he said he had no intention of staying off the alcohol for that length of time. Mental status examination: General Appearance: Patient appears to be bald, he looks his stated age, he is alert, attempts to cooperate, hesitant. Patient has minimal but adequate hygiene and grooming. Good eye contact Behavior: Patient is seated without any agitated behavior. He came readily to talk to me in on the stranger did not seem to have much Paranoia. Speech: Patient's speech is fluent and nonpressured. His answers were brief and did not have much contact Mood/Affect: Patient reports their mood is anxious, affect is congruent and constricted. Suicidality/Homicidality: Patient denies having any homicidal ideation intent or plan. Denies any suicidal ideations intent or plan Perceptions: Patient denies any visual hallucinations and denies any auditory hallucinations Though content/process: Endorsing less paranoia today. [place], more goal oriented. Memory and concentration: AOX3, grossly intact for the purposes of this session Judgment and insight: poor, improving markedly PLAN: No change in medication -Patient is admitted under involuntary status to [facility] for stabilization of psychiatric symptoms and safety. Patient has not signed adult voluntary form and medication consent and is placed in patient's chart. A second certification was completed and along with petition will be filed for court. -Medications : Increased Prolixin 5 mg twice a day for psychosis/mood stabilization. will give Prolixin D DOMINGO on monday to help ensure compliance. Trazodone 50 mg daily at bedtime for insomnia/mood. decrease Librium 10 mg 3 times a day scheduled with plan to taper down for alcohol withdrawal over the weekend. -Ativan and Haldol PRN for agitation/aggression -Started thiamine, MVM for etoh use -CIWA protocol with Ativan PRN for ETOH withdrawal -NRT - nicotine patch -SW on board for discharge planning. Encourage patient to participate in groups to work on coping skills. Patient deferred with his concrete pump operator. patient is refusing rehab at this time. Likely discharge after patient is transitioned onto long-acting injection, likely Monday. Objective - Vital Signs Vital signs: Vital Signs Temp 96.8 F L 02/10/23 06:42 Pulse 89 02/11/23 07:55 Resp 18 02/11/23 07:02 BP 108/69 02/11/23 07:55 Pulse Ox 98 02/09/23 07:05 FiO2 - Labs CBC & Chem 7: 02/07/23 18:41 02/07/23 18:41
[2023-02-11] MEDS: hydrOXYzine pamoate 25 MG CAP PO PRN ×2 (12:12→19:16)
[2023-02-11] MEDS: traZODone HCL 50 MG TAB PO SCH (20:02)
--- NOTE | 2023-02-12 07:23 | P.PN ---
Subjective Principal diagnosis: IMPRESSIONS: Schizoaffective disorder, bipolar type Opioid abuse Alcohol use disorder Cannabis use disorder Nicotine dependence Schizoaffective disorder, bipolar type Opioid abuse Alcohol use disorder Cannabis use disorder Nicotine dependence Interval history: Patient was seen today. He was lying on the floor in the hallway but his legs are sore and there are no benches. I think he was waiting for medication. He was agreeable to speak va underwriter today. Patient claims that he is doing a bit better with regards to his mood . He has cooperative. Much resigned to doing whatever we asked him to do. However is very honest and says he likes drinking alcohol and has no intention of quitting. He was complaining about poor sleep which comes from not using alcohol and all the damage alcohol did to his brain I told him that it would take about a year of sobriety for that part of his brain to be fully healed and he said he had no intention of staying off the alcohol for that length of time. Mental status examination: General Appearance: Patient appears to be bald, he looks his stated age, he is alert, attempts to cooperate, hesitant. Patient has minimal but adequate hygiene and grooming. Poor eye contact Behavior: Patient is seated without any agitated behavior. He came readily to talk to me even though I am a stranger did not seem to have much Paranoia. He seemed to be eager to talk but basically was focused on discharge. When asked what his plans for doing well after discharge were, he said, " I am going to pray more." Speech: Patient's speech is fluent and nonpressured. His answers were brief and did not have much contact Mood/Affect: Patient reports their mood is anxious, affect is congruent and constricted. Suicidality/Homicidality: Patient denies having any homicidal ideation intent or plan. Denies any suicidal ideations intent or plan Perceptions: Patient denies any visual hallucinations and denies any auditory hallucinations Though content/process: Endorsing less paranoia today. [place], more goal oriented. Memory and concentration: AOX3, grossly intact for the purposes of this session Judgment and insight: poor, improving slowly Assessment: He does not have much insight and his plan for doing well afterward is to go ahead and drink and hanging out with family more and pray. Prognosis thus is pretty poor. PLAN: No change in medication he seems to be tolerating the Prolixin I don't see any extraparametal symptoms he is not sleepy or unsteady and he was able sleep although he was hungry had to have a snack and then he was able to get back to sleep. -Patient is admitted under involuntary status to [facility] for stabilization of psychiatric symptoms and safety. Patient has not signed adult voluntary form and medication consent and is placed in patient's chart. A second certification was completed and along with petition will be filed for court. -Medications : Increased Prolixin 5 mg twice a day for psychosis/mood stabiliza tion. will give Prolixin D DOMINGO on monday to help ensure compliance. Trazodone 50 mg daily at bedtime for insomnia/mood. decrease Librium 10 mg 3 times a day scheduled with plan to taper down for alcohol withdrawal over the weekend. -Ativan and Haldol PRN for agitation/aggression -Started thiamine, MVM for etoh use -CIWA protocol with Ativan PRN for ETOH withdrawal -NRT - nicotine patch -SW on board for discharge planning. Encourage patient to participate in groups to work on coping skills. Patient deferred with his county attorney. patient is refusing rehab at this time. Likely discharge after patient is transitioned onto long-acting injection, likely Monday. Objective - Vital Signs Vital signs: Vital Signs Temp 98.1 F 02/11/23 10:14 Pulse 88 02/12/23 06:58 Resp 18 02/12/23 06:58 BP 119/65 02/12/23 06:58 Pulse Ox 99 02/11/23 10:14 FiO2 - Labs CBC & Chem 7: 02/07/23 18:41 02/07/23 18:41
[2023-02-12] MEDS: NICOTINE 14MG/24HR PATCH TRANSDERM SCH (08:17)
[2023-02-12] MEDS: hydrOXYzine pamoate 25 MG CAP PO PRN ×2 (12:41→20:41)
[2023-02-12] MEDS: IBUPROFEN 600 MG TAB PO PRN (14:08)
[2023-02-12] MEDS: traZODone HCL 50 MG TAB PO SCH (19:53)
[2023-02-13] MEDS: IBUPROFEN 600 MG TAB PO PRN ×2 (08:41→17:25)
[2023-02-13] MEDS: NICOTINE 14MG/24HR PATCH TRANSDERM SCH (08:41)
[2023-02-13] MEDS: hydrOXYzine pamoate 25 MG CAP PO PRN ×2 (09:42→17:25)
[2023-02-13] MEDS ORDERED: fluPHENAZine DECANOATE 25 MG/ML 5ML MDV IM ONE (10:54)
--- NOTE | 2023-02-13 10:58 | P.PN ---
Progress Note - Text Progress Note Date: 02/13/23 Interval history: Patient was seen today as he was wandering the hallways. He was agreeable to be directed today in the office. He states that he is doing a bit better today and claims that he is still having some anxiety. He claims that he feels his symptoms have been improving. We spoke about going on Zoloft which she is okay to try today. States it is able to sleep fairly at nighttime, and participate in groups. He is not endorsing paranoia or delusions at this time. She claims that he still agreeable to be transitioned onto the long-acting injection starting today. Claims his appetite is fair, sleep has been fair at nighttime. She deferred with his family law attorney. He states that he is not having any auditory or visual hallucinations. Denies any suicidal or homicidal ideations intent or plan. In that he is sleeping fairly at nighttime, denies any changes in appetite. Mental status examination: General Appearance: Patient appears to be bald, stated age is alert, attempts to cooperate, hesitant. Patient appears to have improving hygiene and grooming. Improving eye contact Behavior: Patient is seated without any agitated behavior. less Paranoia. Speech: Patient's speech is fluent and nonpressured. [place], improving Mood/Affect: Patient reports their mood is anxious, affect is congruent and improving Suicidality/Homicidality: Patient denies having any homicidal ideation intent or plan. Denies any suicidal ideations intent or plan Perceptions: Patient denies any visual hallucinations and denies any auditory hallucinations Though content/process: Not endorsing paranoia today. [place], more goal oriented. Memory and concentration: AOX3, grossly intact for the purposes of this session Judgment and insight: Improving mildly IMPRESSIONS: Schizoaffective disorder, bipolar type Opioid abuse Alcohol use disorder Cannabis use disorder Nicotine dependence PLAN: -Patient is admitted under involuntary status to [facility] for stabilization of psychiatric symptoms and safety. Patient has not signed adult voluntary form and medication consent and is placed in patient's chart. A second certification was completed and along with petition will be filed for court. -Medications : continue Prolixin 5 mg twice a day for psychosis/mood stabilization. will give Prolixin D DOMINGO today 37.5 mg IM q14d to help ensure compliance. Trazodone 50 mg daily at bedtime for insomnia/mood. start zoloft 50 mg daily for anxiety/mood -Ativan and Haldol PRN for agitation/aggression -thiamine, MVM for etoh use -NRT - nicotine patch -SW on board for discharge planning. Encourage patient to participate in groups to work on coping skills. Patient deferred with his family law attorney. patient is refusing rehab at this time. Likely discharge after patient is transitioned onto long-acting injection, likely Monday.
[2023-02-13] MEDS: SERTRALINE 50 MG TAB PO SCH (12:29)
[2023-02-13] MEDS: traZODone HCL 50 MG TAB PO SCH (19:40)
[2023-02-14 04:41] VITALS: BP 140/63; PULSE 90; RESP 13; TEMP 97.6
[2023-02-14] MEDS: IBUPROFEN 600 MG TAB PO PRN (06:41)
[2023-02-14] MEDS: NICOTINE 14MG/24HR PATCH TRANSDERM SCH (08:15)
[2023-02-14] MEDS: SERTRALINE 50 MG TAB PO SCH (08:15)
--- NOTE | 2023-02-14 10:04 | P.DS ---
Providers Date of admission: 02/07/23 23:00 Expected date of discharge: 02/14/23 Attending physician: Hamzah Ortiz MD Consults: 02/07/23 23:09 Consult Physician Routine Consulting Provider: Ashwini Physician Consult Reason/Comments: H&P and medical Do you want consulting provider notified?: Yes Primary care physician: Eriberto Bowers MD - Discharge Diagnosis(es) (1) Schizoaffective disorder, bipolar type Current Visit: Yes Status: Acute Priority: High (2) Opioid abuse Current Visit: Yes Status: Acute Priority: Medium (3) Alcohol use disorder Current Visit: Yes Status: Acute Priority: Medium (4) Cannabis use disorder Current Visit: Yes Status: Acute Priority: Medium (5) Nicotine dependence Current Visit: Yes Status: Acute Priority: Low Hospital Course: Admission HPI: Admission note was completed by [verse writer] "[Patient is a 32 yo male, currently lives alone in an apartment, single has 1. He collects SSD and SSI. Patient presented to the hospital on 02/07 was brought in by police. Patient was abusing alcohol apparently, not taking his psychiatric medications. Patient apparently was endorsing paranoia and also was delusional according to ER report. Patient blood alcohol level was 91, urine drugs and is positive for opiates and marijuana. Patient was admitted involuntarily to the mental health unit. According to the petition states that "Juan Carlos believes people/neighbors are trying to kill him, he is being poisoned, not eating, Aguilar placed around house for safety, yelling at people who were not there, not sleeping and A's, states something bad will happen if things don't change. States he has knives for when they come in to kill him, looking for cameras and smoke detectors, labile tearful crying and yelling all within minutes of one another." Provision goes on to state that patient has been not taking his psychiatric medications and using multiple substances and has been fairly paranoid and delusional and has a previous history of bipolar disorder. Patient was seen today by verse writer and agreeable to speak. He had very poor eye contact, endorsing poor insight and judgment. He states that "I think people are coming out to kill me". He went on to state that "they're coming after me" and believes that they're "strangers to me". He claims that they might be getting paid by someone and was speaking about a life insurance policy. He claims that it is possibly forged. He states that he has seen him before and is "a lot of people". He claims that [facility] was concerned about him and called the police to bring him into the hospital. States that he is not having depression this time, endorses anxiety. He claims that his sleep has been on and off, appetite as been fair. Patient denies any suicidal or homicidal ideations intent or plan. At this time patient denies any auditory or visual hallucinations. Patient is admitting to abusing "pain pills" and Suboxone off the street regularly. He states that he also smokes marijuana frequently, has been drinking alcohol about 1 pint of vodka a day. He denies any history of withdrawal symptoms and is denying any withdrawal symptoms at this time. Also endorses smoking cigarettes.]" Hospital course: Upon admission to the unit patient was [admitted involuntarily on a petition and certificate and a second certificate was completed and faxed with the courts]. [Patient ended up signing a deferral with the assistant city attorney and agreeing to treatment.] [] Patient got along well with other patients on the unit and followed unit protocol. Patient was compliant with the medications and denied any side effects throughout hospital course. Patient was started on [Prolixin 5 mg twice a day for psychosis/mood stabilization. Patient was transitioned onto Prolixin D long-acting injection, given 37.5 mg IM every 14 days, first dose given on 02/13, next dose will be due on 02/27. The patient was also started on trazodone 50 mg daily at bedtime for insomnia/mood, Zoloft 50 mg daily for anxiety/mood]. Patient spoke of [his] stressors and engaged in therapy both group and individual. Patient was also seen by medical team for history and physical exam. [] Throughout the course of the hospitalization patient gradually improved with regards to [mood, anxiety], psychosis/paranoia, sleep and [returned back to their baseline level of functioning]. On the day of discharge patient denied any suicidal or homicidal ideations intent or plan denied any auditory or visual hallucinations. Patient endorsed wanting to live for [his health and family.] The patient denied any access to guns or weapons. Patient denied any paranoia and did not endorse any delusions. Patient does have a significant history of substance abuse [and] was counseled on abstaining from all substances including alcohol and marijuana. [Patient elected to do outpatient substance use treatment program through [facility].] Patient was also counseled on the medications and need for regular compliance and was encouraged to follow-up with their outpatient appointment for mental health and also for primary care. patient will be followed/monitored closely by [facility] act team or next step program. Mental status exam: General Appearance: Patient appears to be []balding, stated age is alert, pleasant, and cooperative. Patient is in no acute distress and has improved hygiene and grooming Behavior: Patient is calmly seated without any agitated behavior. cooperative. Speech: Patient's speech is fluent and nonpressured. Mood/Affect: Patient reports their mood is "[better]", affect is congruent and constricted Suicidality/Homicidality: Patient denies having any suicidal or homicidal ideation intent or plan. Perceptions: Patient denies any auditory or visual hallucinations. Though content/process: There is no evidence of any delusional thought content and thought process is linear and goal-directed. [more future oriented] Memory and concentration: AOX3, grossly intact for the purposes of this session. Can spell "WORLD" backwards correctly. Judgment and insight: [chronically poor/limited, however has] improved with guarded prognosis Impression: Schizoaffective disorder, bipolar type Opioid abuse Alcohol use disorder Cannabis use disorder [Nicotine dependence] Plan: -Continue with discharge today as patient has improved and stabilized psychiatrically and is not currently an imminent threat to [himself] and/or others. [Patient will remain at chronically elevated risk for harm to self and/or others due to his impulsivity and polysubstance abuse.] -Continue medications: Continue Prolixin by mouth 5 mg twice a day for psychosis/mood stabilization for 3 more days then discontinue. Patient was transitioned onto Prolixin D long-acting injection given on 02/13, 37.5 mg IM every 14 days, next dose to be due on 02/27. Trazodone 50 mg daily at bedtime for insomnia/mood, Zoloft 50 mg daily for anxiety/mood. -Patient was counseled on the need for medication compliance and appropriate follow-up at mental health and also primary care for medical issues. Patient verbalized understanding and agreed. -Social work to [arrange for and conduct family meeting to ensure safety upon discharge and answer any questions/concerns.] Social work also to arrange for patients follow up appointments [with [facility] and act team/next step program] for psychiatric care along with follow up with primary care provider. -Patient counseled on abstaining from recreational drugs and marijuana and alcohol. Was informed/educated on the adverse effects on their physical and mental health. [Patient verbally agreed and understood]. [Patient was offered substance abuse treatment however declined at this time.] -Patient was instructed to return to the hospital or seek immediate medical care if their psychiatric or medical symptoms do worsen or reoccur. Allergies Allergy/AdvReac Type Severity Reaction Status Date / Time No Known Allergies Allergy Verified 02/07/23 23:34 Laboratory Results WBC 4.7 k/uL (3.8-10.6) 02/07/23 18:41 RBC 4.76 m/uL (4.30-5.90) 02/07/23 18:41 Hgb 15.5 gm/dL (13.0-17.5) 02/07/23 18:41 Hct 45.9 % (39.0-53.0) 02/07/23 18:41 MCV 96.5 fL (80.0-100.0) 02/07/23 18:41 MCH 32.7 pg (25.0-35.0) 02/07/23 18:41 MCHC 33.9 g/dL (31.0-37.0) 02/07/23 18:41 RDW 12.7 % (11.5-15.5) 02/07/23 18:41 Plt Count 213 k/uL (150-450) 02/07/23 18:41 MPV 7.9 02/07/23 18:41 Neutrophils % 60 % 02/07/23 18:41 Lymphocytes % 30 % 02/07/23 18:41 Monocytes % 4 % 02/07/23 18:41 Eosinophils % 3 % 02/07/23 18:41 Basophils % 0 % 02/07/23 18:41 Neutrophils # 2.9 k/uL (1.3-7.7) 02/07/23 18:41 Lymphocytes # 1.4 k/uL (1.0-4.8) 02/07/23 18:41 Monocytes # 0.2 k/uL (0-1.0) 02/07/23 18:41 Eosinophils # 0.1 k/uL (0-0.7) 02/07/23 18:41 Basophils # 0.0 k/uL (0-0.2) 02/07/23 18:41 Sodium 142 mmol/L (137-145) 02/07/23 18:41 Potassium 4.7 mmol/L (3.5-5.1) 02/07/23 18:41 Chloride 105 mmol/L (98-107) 02/07/23 18:41 Carbon Dioxide 25 mmol/L (22-30) 02/07/23 18:41 Anion Gap 12 mmol/L 02/07/23 18:41 BUN 11 mg/dL (9-20) 02/07/23 18:41 Creatinine 0.68 mg/dL (0.66-1.25) 02/07/23 18:41 Est GFR (CKD-EPI)AfAm >90 (>60 ml/min/1.73 sqM) 02/07/23 18:41 Est GFR (CKD-EPI)NonAf >90 (>60 ml/min/1.73 sqM) 02/07/23 18:41 Glucose 119 mg/dL (74-99) H 02/07/23 18:[address] Glu mg/dL 103 mg/dL 02/07/23 18:41 Hemoglobin A1c 5.2 % (<=6.0) 02/07/23 18:41 Calcium 9.4 mg/dL (8.4-10.2) 02/07/23 18:41 Magnesium 1.9 mg/dL (1.6-2.3) 02/07/23 18:41 Total Bilirubin 0.5 mg/dL (0.2-1.3) 02/07/23 18:41 AST 29 U/L (17-59) 02/07/23 18:41 ALT 23 U/L (4-49) 02/07/23 18:41 Alkaline Phosphatase 63 U/L (38-126) 02/07/23 18:41 Total Protein 7.6 g/dL (6.3-8.2) 02/07/23 18:41 Albumin 4.7 g/dL (3.5-5.0) 02/07/23 18:41 Triglycerides 79.30 mg/dL (0.00-149.00) 02/07/23 18:41 Cholesterol 171.00 mg/dL (0.00-200.00) 02/07/23 18:41 LDL Cholesterol, Calc 89.9 mg/dL (0.0-131.0) 02/07/23 18:41 VLDL Cholesterol, Calc 15.86 mg/dL (5.00-40.00) 02/07/23 18:41 HDL Cholesterol 65.20 mg/dL (40.00-60.00) H 02/07/23 18:41 Cholesterol/HDL Ratio 2.62 Ratio 02/07/23 18:41 TSH 0.492 mIU/L (0.465-4.680) 02/07/23 18:41 Urine Color Light Yellow 02/07/23 18:41 Urine Appearance Clear (Clear) 02/07/23 18:41 Urine pH 6.0 (5.0-8.0) 02/07/23 18:41 Ur Specific Martha 1.010 (1.001-1.035) 02/07/23 18:41 Urine Protein Negative (Negative) 02/07/23 18:41 Urine Glucose (UA) Negative (Negative) 02/07/23 18:41 Urine Ketones Negative (Negative) 02/07/23 18:41 Urine Blood Negative (Negative) 02/07/23 18:41 Urine Nitrite Negative (Negative) 02/07/23 18:41 Urine Bilirubin Negative (Negative) 02/07/23 18:41 Urine Urobilinogen <2.0 mg/dL (<2.0) 02/07/23 18:41 Ur Leukocyte Esterase Negative (Negative) 02/07/23 18:41 Urine Opiates Screen Detected (NotDetected) H 02/07/23 18:41 Ur Oxycodone Screen Not Detected (NotDetected) 02/07/23 18:41 Urine Methadone Screen Not Detected (NotDetected) 02/07/23 18:41 Ur Propoxyphene Screen Not Detected (NotDetected) 02/07/23 18:41 Ur Barbiturates Screen Not Detected (NotDetected) 02/07/23 18:41 U Tricyclic Antidepress Not Detected (NotDetected) 02/07/23 18:41 Ur Phencyclidine Scrn Not Detected (NotDetected) 02/07/23 18:41 Ur Amphetamines Screen Not Detected (NotDetected) 02/07/23 18:41 U Methamphetamines Scrn Not Detected (NotDetected) 02/07/23 18:41 U Benzodiazepines Scrn Not Detected (NotDetected) 02/07/23 18:41 Urine Cocaine Screen Not Detected (NotDetected) 02/07/23 18:41 U Marijuana (THC) Screen Detected (NotDetected) H 02/07/23 18:41 Serum Alcohol 91 mg/dL 02/07/23 18:41 Coronavirus (PCR) Not Detected (Not Detectd) 02/07/23 22:24 Vital Signs Temp 97.6 F 02/14/23 04:27 Pulse 90 02/14/23 04:27 Resp 13 02/14/23 04:27 BP 140/63 02/14/23 04:27 Pulse Ox 98 02/13/23 06:00 FiO2 Patient Condition at Discharge: Stable Plan - Discharge Summary Discharge Rx Participant: Yes New Discharge Prescriptions: New traZODone HCL [Desyrel] 50 mg PO HS 30 Days #30 tab Nicotine 14Mg/24Hr Patch [Habitrol] 1 patch TRANSDERM DAILY 14 Days #14 patch hydrOXYzine pamoate [Vistaril] 50 mg PO DAILY PRN 30 Days #60 cap PRN Reason: Anxiety fluPHENAZine [Prolixin] 5 mg PO BID 3 Days #9 tab Sertraline [Zoloft] 50 mg PO DAILY 30 Days #30 tab fluPHENAZine decanoate [Prolixin Decanoate] 37.5 mg IM [id number] #1 each Discharge Medication List Nicotine 14Mg/24Hr Patch [Habitrol] 1 patch TRANSDERM DAILY 14 Days #14 patch 02/14/23 [Rx] Sertraline [Zoloft] 50 mg PO DAILY 30 Days #30 tab 02/14/23 [Rx] fluPHENAZine [Prolixin] 5 mg PO BID 3 Days #9 tab 02/14/23 [Rx] fluPHENAZine decanoate [Prolixin Decanoate] 37.5 mg IM [id number] #1 each 02/14/23 [Rx] hydrOXYzine pamoate [Vistaril] 50 mg PO DAILY PRN 30 Days #60 cap 02/14/23 [Rx] traZODone HCL [Desyrel] 50 mg PO HS 30 Days #30 tab 02/14/23 [Rx] Follow up Appointment(s)/Referral(s): [facility] [Outside] - 02/16/23 12:00 pm (02/16@ 12pm with Sabra WHITTAKER 02/20@ 10:30am with Dr. Richard) Eriberto Bowers MD [Primary Care Provider] - 1-2 days Activity/Diet/Wound Care/Special Instructions: Avoid the use of street drugs and alcohol. Take all medications as prescribed. When you are in need of refills on your medications, please contact your medical provider and/or outpatient psychiatrist/provider to have this done. Please go to your scheduled outpatient appointment for aftercare treatment. If symptoms return or become worse, call the crisis line at and/or go to the nearest emergency room for evaluation. National Suicide Hotline 988. Discharge/Stand Alone Forms: AA Meetings Dist 22 & 24 - [facility] Discharge Disposition: HOME SELF-CARE
== END 2023-02-14 11:35 | disposition home or self-care (01) | DRG 885 ==
LOC: EC 14:37 → 3MHU 23:00
PROVIDERS: ADMIT Psychiatry & Neurology Psychiatry; ATTEND Psychiatry & Neurology Psychiatry
DX: F25.0 Schizoaffective disorder, bipolar type (principal); G93.40 Encephalopathy, unspecified; E03.9 Hypothyroidism, unspecified; M32.9 Systemic lupus erythematosus, unspecified; F41.9 Anxiety disorder, unspecified; F11.10 Opioid abuse, uncomplicated; F12.10 Cannabis abuse, uncomplicated; F17.210 Nicotine dependence, cigarettes, uncomplicated; F43.21 Adjustment disorder with depressed mood; R61 Generalized hyperhidrosis; F10.129 Alcohol abuse with intoxication, unspecified; F60.3 Borderline personality disorder; G47.00 Insomnia, unspecified; I10 Essential (primary) hypertension; Y90.4 Blood alcohol level of 80-99 mg/100 ml; Z79.899 Other long term (current) drug therapy; Z91.52 Personal history of nonsuicidal self-harm; Z20.822 Contact with and (suspected) exposure to COVID-19; Z87.820 Personal history of traumatic brain injury; Z91.148 Patient's other noncompliance with medication regimen for other reason
CPT/HCPCS: 36415; 80053; 80061; 80306; 80320; 81003; 82075; 83036; 83735; 84443; 85025; 87635; 96360; 99285

== ENCOUNTER 2023-06-07 11:00 | Emergency (ER) | payer MEDICARE, MEDICAID ==
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
[2023-06-07] MEDS: LIDOCAINE 1% INJ 10MG/ML (20 ML MDV) SQ ONE (11:21)
[2023-06-07 11:36] VITALS: PULSE 80
[2023-06-07 12:48] VITALS: BP 132/86; RESP 18; TEMP 98.1
== END 2023-06-07 12:51 | disposition home or self-care (01) ==
LOC: EC 11:00
DX: S01.81XA Laceration without foreign body of other part of head, initial encounter (principal); I10 Essential (primary) hypertension; F41.9 Anxiety disorder, unspecified; F32.A Depression, unspecified; F17.200 Nicotine dependence, unspecified, uncomplicated; F12.90 Cannabis use, unspecified, uncomplicated; Z79.899 Other long term (current) drug therapy; W01.10XA Fall on same level from slipping, tripping and stumbling with subsequent striking against unspecified object, initial encounter
CPT/HCPCS: 12013; 99282; J2001

== ENCOUNTER 2023-07-28 15:38 | Inpatient (IN) | payer MEDICARE, MEDICAID ==
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
[2023-07-28 22:00] LABS: Basophils % (A) 0 %; Eosinophils # (A) 0.1 k/uL (0-0.7); Eosinophils % (A) 3 %; HCT 40.2 % (39.0-53.0); HGB 13.2 gm/dL (13.0-17.5); Lymphocytes # (A) 2.3 k/uL (1.0-4.8); Lymphocytes % (A) 52 %; MCH 30.8 pg (25.0-35.0); MCHC 32.8 g/dL (31.0-37.0); MCV 93.8 fL (80.0-100.0); Mean Platelet Volume 8.3; Monocytes # (A) 0.3 k/uL (0-1.0); Monocytes % (A) 6 %; Neutrophils # (A) 1.6 k/uL (1.3-7.7); Neutrophils % (A) 36 %; Platelet Count 186 k/uL (150-450); RBC 4.29 m/uL (4.30-5.90); WBC 4.4 k/uL (3.8-10.6)
[2023-07-28 22:08] LABS: ALT 15 U/L (4-49); AST 20 U/L (17-59); African American GFR (CKD) >90 (>60 ml/min/1.73 sqM); Albumin 4.2 g/dL (3.5-5.0); Alkaline Phosphatase 100 U/L (38-126); Anion Gap 7 mmol/L; Blood Urea Nitrogen 20 mg/dL (9-20); Carbon Dioxide 27 mmol/L (22-30); Chloride 106 mmol/L (98-107); Glucose 101 mg/dL (74-99); Non-African American GFR(CKD) >90 (>60 ml/min/1.73 sqM); Potassium 4.4 mmol/L (3.5-5.1); Sodium 140 mmol/L (137-145); Total Bilirubin 0.2 mg/dL (0.2-1.3); Total Protein 6.8 g/dL (6.3-8.2)
[2023-07-28] MEDS: ALPRAZolam 1 MG TAB PO STA (22:14)
[2023-07-28] MEDS ORDERED: MAG HYDROX/AL HYDROX/SIMETH 355 ML BOTTLE PO PRN (23:25)
[2023-07-28] MEDS ORDERED: hydrOXYzine HCL 50 MG/ML 1 ML VIAL IM PRN (23:25)
[2023-07-28] MEDS ORDERED: LORazepam 2 MG/ML INJ IM PRN (23:25)
[2023-07-28] MEDS ORDERED: ACETAMINOPHEN TAB 325 MG TAB PO PRN (23:25)
[2023-07-28] MEDS ORDERED: MAGNESIUM HYDROXIDE 2,400 MG/30 ML CUP PO PRN (23:25)
[2023-07-29 08:27] LABS: ALT 15 U/L (4-49); AST 21 U/L (17-59); Albumin 4.3 g/dL (3.5-5.0); Alkaline Phosphatase 96 U/L (38-126); Bilirubin, Delta 0.2 mg/dL (0.0-0.2); Bilirubin,Unconjugated 0.2 mg/dL (0.0-1.1); Total Bilirubin 0.4 mg/dL (0.2-1.3); Total Protein 7.3 g/dL (6.3-8.2)
[2023-07-29] MEDS: NICOTINE 14MG/24HR PATCH TRANSDERM SCH (08:41)
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
[2023-07-29 22:47] LABS: Chol/HDL Ratio 3.65 Ratio
[2023-07-29 23:30] LABS: Appearance,Urine Clear (Clear); Bilirubin,Urine Negative (Negative); Blood,Urine Negative (Negative); Color,Urine Light Yellow; Glucose,Urine (UA) Negative (Negative); Ketones,Urine Negative (Negative); Leukocyte Esterase,Urine Negative (Negative); Nitrite,Urine Negative (Negative); PH, Urine 7.5 (5.0-8.0); Protein,Urine Trace (Negative); Specific Gravity,Urine 1.024 (1.001-1.035); Urobilinogen,Urine <2.0 mg/dL (<2.0)
[2023-07-30] LABS: Amphetamine Screen,Urine Not Detected (NotDetected); Barbiturate Screen,Urine Not Detected (NotDetected); Benzodiazepines Screen,Urine Detected (NotDetected); Cocaine Screen,Urine Not Detected (NotDetected); Methadone Screen, Urine Not Detected (NotDetected); Opiate Screen,Urine Not Detected (NotDetected); Oxycodone Screen, Urine Not Detected (NotDetected); Phencyclidine Screen,Urine Not Detected (NotDetected); Tricyclic Antidepressant,Urine Not Detected (NotDetected); Urn Cannabinoid Scrn Detected (NotDetected)
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
[2023-07-30] MEDS: ARIPiprazole 15 MG TAB PO SCH (08:19)
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
[2023-07-30] MEDS: hydrOXYzine HCL 25 MG TAB PO PRN (17:50)
[2023-07-30] MEDS: LORazepam 1 MG TAB PO PRN (20:07)
[2023-07-31] MEDS: THIAMINE 100 MG TAB PO SCH (08:14)
--- NOTE | 2023-07-31 13:10 | P.PN ---
Progress Note - Text Progress Note Date: 07/31/23 Interval History: Patient was seen wandering the hallways and was directable and agreeable to sp mile with travel writer in the office. Patient states that he is ok today. He is concrete, and is minimizing need for treatment. Supervisor [employer] spoke with patient about transitioning him onto a DOMINGO prior to discharge, to comply with the court order, patient agreeable. Patient states that he is sleeping well, and his appetite is good. Patient is going to groups. At this time patient denies any suicidal or homicidal ideations, intent or plan. Patient denies any auditory, visual hallucinations and denies any paranoia or delusions. Patient denies any side effects from the medications and has been compliant with meds. MENTAL STATUS EXAM: General Appearance: Patient appears to be older than stated age, muñiz, balding. directable, and attempts to cooperate. Patient appears to have disheveled hygiene and grooming. Staggering gait Behavior: Patient is sitting in the chair, without any acute distress fair eye contact. Speech: Patient's speech is fluent. [place], soft tone, Mood/Affect: Patient reports their mood is ok . affect is congruent and constricted, Suicidality/Homicidality: denies to suicidal thoughts, no intent or plan, denies any homicidal ideations. Perceptions: denies any auditory hallucinations, denies any visual hallucinations Though content/process: Patient is logical, minimizing his mental health, Vague Memory and concentration: Alert and oriented 3, fair attention span. Judgment and insight: poor IMPRESSIONS: Schizoaffective disorder cannabis use disorder Nicotine dependence alcohol use disorder intellectual disability Plan: -Patient continues to meet criteria for inpatient psychiatric admission for symptom stabilization and safety. Patient is currently on a court order. Exp 08/09/23 -Medications: increase Abilify 20mg po daily for psychosis/mood stabilization, add trazodone 50mg qhs for sleep. Last prolixin injection given on 04/27/23, will likely transition to Abilify Maintena once patient is improving psychiatrically and tolerating medications well, not having any side effects. -When necessary Ativan and Haldol for agitation/aggression. -NRT - [nicotine patch] -SW on board for discharge planning. Encouraged the patient to participate in milieu. Patient is currently on a court order. Will need to transition patient onto long-acting injection prior to discharge.
[2023-07-31] MEDS: traZODone HCL 50 MG TAB PO PRN (20:10)
--- NOTE | 2023-08-01 09:42 | P.PN ---
Progress Note - Text Progress Note Date: 08/01/23 Interval History: Patient was seen wandering the hallways and was directable and agreeable to paul treadwell with card writer hand in the office. Patient states that he is ok today. Claims that he was not able to sleep well last night, was complaining of some mild anxiety mainly due to another patient on the unit. He claims that he is tolerating medications fairly well. Was asking for an increase in his trazodone for the nighttime. We spoke more about the long-acting injection and he is agreeable to receive it today. Patient is going to groups. Claims that his appetite is mildly improving. At this time patient denies any suicidal or homicidal ideations, intent or plan. Patient denies any auditory, visual hallucinations and denies any paranoia or delusions. Patient denies any side effects from the medications and has been compliant with meds. MENTAL STATUS EXAM: General Appearance: Patient appears to be older than stated age, muñiz, balding. directable, and attempts to cooperate. Patient appears to have improving hygiene and grooming. Staggering gait, more cooperative today Behavior: Patient is sitting in the chair, without any acute distress fair eye contact. Speech: Patient's speech is fluent. [place], soft tone, improving mildly Mood/Affect: Patient reports their mood is ok . affect is congruent and constricted, Suicidality/Homicidality: denies to suicidal thoughts, no intent or plan, denies any homicidal ideations. Perceptions: denies any auditory hallucinations, denies any visual hallucinations Though content/process: Patient is logical, more goal oriented today, vague, improving mildly Memory and concentration: Alert and oriented 3, fair attention span. Judgment and insight: poor, improving mildly IMPRESSIONS: Schizoaffective disorder cannabis use disorder Nicotine dependence alcohol use disorder intellectual disability Plan: -Patient continues to meet criteria for inpatient psychiatric admission for symptom stabilization and safety. Patient is currently on a court order. Exp 08/09/23 -Medications: Abilify 20mg po daily for psychosis/mood stabilization, will give Abilify Maintena 400 mg IM today, next dose will be due on 08/28. Increase trazodone 100mg qhs for sleep. -When necessary Ativan and Haldol for agitation/aggression. -NRT -nicotine patch -SW on board for discharge planning. Encouraged the patient to participate in milieu. Patient is currently on a court order. Will need to transition patient onto long-acting injection prior to discharge. hopeful for discharge in 2-3 days back home.
[2023-08-01] MEDS: ARIPiprazole IM SYRINGE 400 MG (NO CHARGE) PHARMACY STOCK IM ONE (10:54)
[2023-08-01] MEDS: traZODone HCL 100 MG TAB PO SCH (19:59)
--- NOTE | 2023-08-02 10:20 | P.PN ---
Progress Note - Text Progress Note Date: 08/02/23 Interval History: Patient was seen wandering the hallways and was directable and agreeable to paul treadwell with auto service writer in the office. Patient states that he is ok today. Patient received his DOMINGO yesterday, and is tolerating it well. Manager [employer] spoke to the patient about receiving the DOMINGO through [facility] to help ensure compliance, patient agreeable. Patient stated he is having a hard time initiating and staying asleep, auto service writer offered an increase in trazodone, patient agreeable. Patient is going to groups. Claims that his appetite good. At this time patient denies any suicidal or homicidal ideations, intent or plan. Patient denies any auditory, visual hallucinations and denies any paranoia or delusions. Patient denies any side effects from the medications and has been compliant with meds. MENTAL STATUS EXAM: General Appearance: Patient appears to be older than stated age, muñiz, balding. directable, and attempts to cooperate. Patient appears to have improving hygiene and grooming. Staggering gait, cooperative. Behavior: Patient is sitting in the chair, without any acute distress fair eye contact. Speech: Patient's speech is fluent. [place], soft tone, improving Mood/Affect: Patient reports their mood is ok. affect is congruent and constricted, Suicidality/Homicidality: denies to suicidal thoughts, no intent or plan, denies any homicidal ideations. Perceptions: denies any auditory hallucinations, denies any visual hallucinations Though content/process: Patient is logical, more goal oriented today, vague, improving Memory and concentration: Alert and oriented 3, fair attention span. Judgment and insight: poor, improving IMPRESSIONS: Schizoaffective disorder cannabis use disorder Nicotine dependence alcohol use disorder intellectual disability Plan: -Patient continues to meet criteria for inpatient psychiatric admission for symptom stabilization and safety. Patient is currently on a court order. Exp 08/09/23 -Medications: Abilify 20mg po daily for psychosis/mood stabilization, last dose of PO abilify on 08/14, Abilify Maintena 400 mg IM 07/31, next dose will be due on 08/28, increase trazodone 150mg qhs for sleep. -When necessary Ativan and Haldol for agitation/aggression. -NRT -nicotine patch -SW on board for discharge planning. Encouraged the patient to participate in milieu. Patient is currently on a court order. Patient received his DOMINGO 07/31, Likely discharge tomorrow back home.
[2023-08-02] MEDS: traZODone HCL 50 MG TAB PO SCH (20:06)
[2023-08-02] MEDS: IBUPROFEN 600 MG TAB PO PRN (23:04)
[2023-08-03 07:50] VITALS: BP 142/67; PULSE 101; RESP 14; TEMP 97.1
--- NOTE | 2023-08-03 09:49 | P.DS ---
Providers Date of admission: 07/28/23 23:21 Expected date of discharge: 08/03/23 Attending physician: Hamzah Ortiz MD Consults: 07/28/23 23:25 Consult Physician Routine Consulting Provider: Ashwini Bellamy Consult Reason/Comments: Medical H&P Do you want consulting provider notified?: Yes Primary care physician: Stated None - Discharge Diagnosis(es) (1) Schizoaffective disorder Current Visit: Yes Status: Acute Priority: High (2) Cannabis use disorder Current Visit: Yes Status: Acute Priority: Medium (3) Intellectual disability Current Visit: Yes Status: Acute Priority: Medium (4) Alcohol use disorder Current Visit: No Status: Acute Priority: Medium (5) Nicotine dependence Current Visit: No Status: Acute Priority: Low Hospital Course: Admission HPI: Admission note was completed by Dr Xavier "this is a psychiatric assessment on Juan Carlos mckeon who is a 32-year-old male and was picked up by the police for lack of compliance and failure to follow through on court order patient reports that he was getting Abilify long-acting and that he had to get a shot every 2 weeks at that he is tired of it He states that he does not feel that it does anything for him and just makes him tired He stated that he is tired of going to the doctors repeatedly and that he would prefer to have something more longer acting like once a month He states that he currently lives with his sister He says that he has been diagnosed with schizophrenia in the past He denies any suicidal or homicidal ideations He denies any auditory or visual hallucinations He denies any thoughts of wanting to hurt himself or others He states that he uses cannabis and does not use any other drugs Follow use and except from the assessment done in the ER which is added here for completeness and which gives a differing accounts from the patient 32-year-old male with known history of psychiatric illness and psychiatric hospitalizations presents to the ER after pickup order. Petition was filled by the clinician states that patient has been having paranoid thoughts and delusions. He has been hospitalized for the same in the past. Patient states he stopped taking his meds and seeing a psychiatrist because he felt like it was not helping. Denies any medical complaints. Addition document was reviewed showing that patient has history of paranoid delusions and feels like people are out to kill him." Hospital course: Upon admission to the unit patient was admitted involuntarily on a deferral and a demand for hearing was scheduled, patient ended up signing a consent to the mental health treatment order. Patient got along well with other patients on the unit and followed unit protocol. Patient was compliant with the medications and denied any side effects throughout hospital course. Patient was started on Abilify and increased to dose of 20 mg daily for psychosis/mood stabilization, patient was transitioned onto Abilify Maintenna to help ensure compliance given 400 mg IM on 07/31, next dose will be due in 1 month on 08/28., Trazodone increased to dose of 150 mg nightly for sleep/mood. Patient spoke of his stressors and engaged in therapy both group and individual. Patient was also seen by medical team for history and physical exam. Throughout the course of the hospitalization patient gradually improved with regards to mood, anxiety, hallucinations/psychosis, sleep and returned back to their baseline level of functioning. On the day of discharge patient denied any suicidal or homicidal ideations intent or plan denied any auditory or visual hallucinations. Patient endorsed wanting to live for his health and family. The patient denied any access to guns or weapons. Patient denied any paranoia and did not endorse any delusions. Patient does have a significant history of substance abuse and was counseled on abstaining from all substances including alcohol and marijuana. Patient was offered however declined inpatient substance-abuse rehab. Patient was also offered anticraving medications for alcohol use however he declined. Patient was also counseled on the medications and need for regular compliance and was encouraged to follow-up with their outpatient appointment for mental health and also for primary care. Prior to discharge a family meeting will be arranged by social science research assistant to answer any questions and ensure safety upon discharge. Mental status exam: General Appearance: Patient appears to be thin, balding, several tattoos, stated age is alert, pleasant, and cooperative. Patient is in no acute distress and has improved hygiene and grooming Behavior: Patient is calmly seated without any agitated behavior. Speech: Patient's speech is fluent and nonpressured. Mood/Affect: Patient reports their mood is "good", affect is congruent and euthymic. Suicidality/Homicidality: Patient denies having any suicidal or homicidal ideation intent or plan. Perceptions: Patient denies any auditory or visual hallucinations. Though content/process: There is no evidence of any delusional thought content and thought process is linear and goal-directed. More future oriented Memory and concentration: AOX3, grossly intact for the purposes of this session. Can spell "WORLD" backwards correctly. Judgment and insight: improved with guarded prognosis Impression: Schizoaffective disorder cannabis use disorder Nicotine dependence alcohol use disorder intellectual disability Plan: -Continue with discharge today as patient has improved and stabilized psychiatrically and is not currently an imminent threat to himself and/or others. Patient will remain at chronically elevated risk for harm to self and/or others due to his impulsivity and substance abuse. -Continue medications: Continue Abilify p.o. 20 mg daily for psychosis/mood stabilization for 12 more days then discontinue. Patient was given Abilify Maintena 400 mg IM on 07/31, next dose will be due in 1 month on 08/28. Trazodone 150 mg nightly as needed for sleep -Patient was counseled on the need for medication compliance and appropriate follow-up at mental health and also primary care for medical issues. Patient verbalized understanding and agreed. -Social work to arrange for and conduct family meeting to ensure safety upon discharge and answer any questions/concerns. Social work also to arrange for patients follow up appointments with [facility] for psychiatric care along with follow up with primary care provider. -Patient counseled on abstaining from recreational drugs and marijuana and alcohol. Was informed/educated on the adverse effects on their physical and mental health. Patient verbally agreed and understood. Patient was offered substance abuse treatment however declined at this time. -Patient was instructed to return to the hospital or seek immediate medical care if their psychiatric or medical symptoms do worsen or reoccur. Allergies Allergy/AdvReac Type Severity Reaction Status Date / Time No Known Allergies Allergy Verified 07/28/23 16:18 Laboratory Results WBC 4.4 k/uL (3.8-10.6) 07/28/23 21:48 RBC 4.29 m/uL (4.30-5.90) L 07/28/23 21:48 Hgb 13.2 gm/dL (13.0-17.5) 07/28/23 21:48 Hct 40.2 % (39.0-53.0) 07/28/23 21:48 MCV 93.8 fL (80.0-100.0) 07/28/23 21:48 MCH 30.8 pg (25.0-35.0) 07/28/23 21:48 MCHC 32.8 g/dL (31.0-37.0) 07/28/23 21:48 RDW 13.0 % (11.5-15.5) 07/28/23 21:48 Plt Count 186 k/uL (150-450) 07/28/23 21:48 MPV 8.3 07/28/23 21:48 Neutrophils % 36 % 07/28/23 21:48 Lymphocytes % 52 % 07/28/23 21:48 Monocytes % 6 % 07/28/23 21:48 Eosinophils % 3 % 07/28/23 21:48 Basophils % 0 % 07/28/23 21:48 Neutrophils # 1.6 k/uL (1.3-7.7) 07/28/23 21:48 Lymphocytes # 2.3 k/uL (1.0-4.8) 07/28/23 21:48 Monocytes # 0.3 k/uL (0-1.0) 07/28/23 21:48 Eosinophils # 0.1 k/uL (0-0.7) 07/28/23 21:48 Basophils # 0.0 k/uL (0-0.2) 07/28/23 21:48 Sodium 140 mmol/L (137-145) 07/28/23 21:48 Potassium 4.4 mmol/L (3.5-5.1) 07/28/23 21:48 Chloride 106 mmol/L (98-107) 07/28/23 21:48 Carbon Dioxide 27 mmol/L (22-30) 07/28/23 21:48 Anion Gap 7 mmol/L 07/28/23 21:48 BUN 20 mg/dL (9-20) 07/28/23 21:48 Creatinine 0.84 mg/dL (0.66-1.25) 07/28/23 21:48 Est GFR (CKD-EPI)AfAm >90 (>60 ml/min/1.73 sqM) 07/28/23 21:48 Est GFR (CKD-EPI)NonAf >90 (>60 ml/min/1.73 sqM) 07/28/23 21:48 Glucose 101 mg/dL (74-99) H 07/28/23 21:[address] Glu mg/dL 105 mg/dL 07/29/23 06:11 Hemoglobin A1c 5.3 % (<=6.0) 07/29/23 06:11 Calcium 9.0 mg/dL (8.4-10.2) 07/28/23 21:48 Total Bilirubin 0.4 mg/dL (0.2-1.3) 07/29/23 06:11 Conjugated Bilirubin 0.0 mg/dL (0.0-0.3) 07/29/23 06:11 Unconjugated Bilirubin 0.2 mg/dL (0.0-1.1) 07/29/23 06:11 Delta Bilirubin 0.2 mg/dL (0.0-0.2) 07/29/23 06:11 AST 21 U/L (17-59) 07/29/23 06:11 ALT 15 U/L (4-49) 07/29/23 06:11 Alkaline Phosphatase 96 U/L (38-126) 07/29/23 06:11 Total Protein 7.3 g/dL (6.3-8.2) 07/29/23 06:11 Albumin 4.3 g/dL (3.5-5.0) 07/29/23 06:11 Triglycerides 150.00 mg/dL (0.00-149.00) H 07/29/23 06:11 Cholesterol 179.00 mg/dL (0.00-200.00) 07/29/23 06:11 LDL Cholesterol, Calc 100.0 mg/dL (0.0-131.0) 07/29/23 06:11 VLDL Cholesterol, Calc 30.00 mg/dL (5.00-40.00) 07/29/23 06:11 HDL Cholesterol 49.00 mg/dL (40.00-60.00) 07/29/23 06:11 Cholesterol/HDL Ratio 3.65 Ratio 07/29/23 06:11 TSH 0.799 mIU/L (0.465-4.680) 07/29/23 06:11 Urine Color Light Yellow 07/29/23 23:00 Urine Appearance Clear (Clear) 07/29/23 23:00 Urine pH 7.5 (5.0-8.0) 07/29/23 23:00 Ur Specific [place] 1.024 (1.001-1.035) 07/29/23 23:00 Urine Protein Trace (Negative) H 07/29/23 23:00 Urine Glucose (UA) Negative (Negative) 07/29/23 23:00 Urine Ketones Negative (Negative) 07/29/23 23:00 Urine Blood Negative (Negative) 07/29/23 23:00 Urine Nitrite Negative (Negative) 07/29/23 23:00 Urine Bilirubin Negative (Negative) 07/29/23 23:00 Urine Urobilinogen <2.0 mg/dL (<2.0) 07/29/23 23:00 Ur Leukocyte Esterase Negative (Negative) 07/29/23 23:00 Urine Opiates Screen Not Detected (NotDetected) 07/29/23 23:02 Ur Oxycodone Screen Not Detected (NotDetected) 07/29/23 23:02 Urine Methadone Screen Not Detected (NotDetected) 07/29/23 23:02 Ur Barbiturates Screen Not Detected (NotDetected) 07/29/23 23:02 U Tricyclic Antidepress Not Detected (NotDetected) 07/29/23 23:02 Ur Phencyclidine Scrn Not Detected (NotDetected) 07/29/23 23:02 Ur Amphetamines Screen Not Detected (NotDetected) 07/29/23 23:02 U Methamphetamines Scrn Not Detected (NotDetected) 07/29/23 23:02 U Benzodiazepines Scrn Detected (NotDetected) H 07/29/23 23:02 Urine Cocaine Screen Not Detected (NotDetected) 07/29/23 23:02 U Marijuana (THC) Screen Detected (NotDetected) H 07/29/23 23:02 SARS-CoV-2 (PCR) Not Detected (Not Detectd) 07/28/23 21:48 Vital Signs Temp 97.1 F L 08/03/23 06:47 Pulse 101 H 08/03/23 06:47 Resp 14 08/03/23 06:47 BP 142/67 08/03/23 06:47 Pulse Ox 99 08/01/23 06:00 FiO2 Patient Condition at Discharge: Stable Plan - Discharge Summary Discharge Rx Participant: No New Discharge Prescriptions: New ARIPiprazole [Abilify] 20 mg PO DAILY 12 Days #12 tab Nicotine 14Mg/24Hr Patch [Habitrol] 1 patch TRANSDERM DAILY 14 Days #14 patch traZODone HCL 150 mg PO HS 30 Days #30 tablet Thiamine [Vitamin B-1] 100 mg PO DAILY tab ARIPiprazole IM [Abilify Maintena] 400 mg IM QMONTHLY #1 each hydrOXYzine HCL [Atarax] 50 mg PO DAILY PRN 30 Days #60 tab PRN Reason: Anxiety Discontinued fluPHENAZine decanoate [Prolixin Decanoate] 50 mg IM [id number] Discharge Medication List ARIPiprazole IM [Abilify Maintena] 400 mg IM QMONTHLY #1 each 08/03/23 [Rx] ARIPiprazole [Abilify] 20 mg PO DAILY 12 Days #12 tab 08/03/23 [Rx] Nicotine 14Mg/24Hr Patch [Habitrol] 1 patch TRANSDERM DAILY 14 Days #14 patch 08/03/23 [Rx] Thiamine [Vitamin B-1] 100 mg PO DAILY tab 08/03/23 [Rx] hydrOXYzine HCL [Atarax] 50 mg PO DAILY PRN 30 Days #60 tab 08/03/23 [Rx] traZODone HCL 150 mg PO HS 30 Days #30 tablet 08/03/23 [Rx] Follow up Appointment(s)/Referral(s): None,Stated [Primary Care Provider] - 1-2 days Discharge Disposition: HOME SELF-CARE
== END 2023-08-03 13:30 | disposition home or self-care (01) | DRG 885 ==
LOC: EC 15:38 → 3MHU 23:21
PROVIDERS: ADMIT Psychiatry & Neurology Psychiatry; ATTEND Psychiatry & Neurology Psychiatry
DX: F25.9 Schizoaffective disorder, unspecified (principal); F79 Unspecified intellectual disabilities; F10.10 Alcohol abuse, uncomplicated; F31.9 Bipolar disorder, unspecified; F12.10 Cannabis abuse, uncomplicated; I10 Essential (primary) hypertension; Z11.52 Encounter for screening for COVID-19; Z28.310 Unvaccinated for COVID-19; F17.210 Nicotine dependence, cigarettes, uncomplicated; Z71.6 Tobacco abuse counseling; Z91.128 Patient's intentional underdosing of medication regimen for other reason; Z91.199 Patient's noncompliance with other medical treatment and regimen due to unspecified reason; Z79.899 Other long term (current) drug therapy; Z87.820 Personal history of traumatic brain injury; Z71.41 Alcohol abuse counseling and surveillance of alcoholic; Z71.51 Drug abuse counseling and surveillance of drug abuser
CPT/HCPCS: 36415; 80053; 80061; 80076; 80306; 81003; 82075; 83036; 84443; 85025; 87635; 99285

== ENCOUNTER 2023-12-19 05:02 | Emergency (ER) | payer MEDICARE, OTHER ==
[2023-12-19 05:08] VITALS: TEMP 98.3
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
[2023-12-19] MEDS: SODIUM CHLORIDE 0.9% 1,000 ML IV STA (05:33)
[2023-12-19] MEDS: LORazepam 2 MG/ML INJ IV STA (05:36)
[2023-12-19 05:42] LABS: Basophils # (A) 0.1 k/uL (0-0.2); Basophils % (A) 0 %; Eosinophils # (A) 0.2 k/uL (0-0.7); Eosinophils % (A) 1 %; HCT 50.1 % (39.0-53.0); HGB 17.4 gm/dL (13.0-17.5); Lymphocytes # (A) 1.2 k/uL (1.0-4.8); Lymphocytes % (A) 8 %; MCHC 34.7 g/dL (31.0-37.0); MCV 95.1 fL (80.0-100.0); Mean Platelet Volume 8.3; Monocytes # (A) 0.9 k/uL (0-1.0); Monocytes % (A) 6 %; Neutrophils # (A) 13.2 k/uL (1.3-7.7); Neutrophils % (A) 84 %; Platelet Count 255 k/uL (150-450); RBC 5.27 m/uL (4.30-5.90); RDW 13.7 % (11.5-15.5); WBC 15.8 k/uL (3.8-10.6)
[2023-12-19] MEDS: HALOPERIDOL LACTATE 5 MG/ML 1 ML VIAL IM STA (05:51)
[2023-12-19 05:52] LABS: ALT 85 U/L (4-49); AST 192 U/L (17-59); African American GFR (CKD) 51 (>60 ml/min/1.73 sqM); Alkaline Phosphatase 94 U/L (38-126); Anion Gap 23 mmol/L; Blood Urea Nitrogen 28 mg/dL (9-20); Calcium 10.7 mg/dL (8.4-10.2); Carbon Dioxide 19 mmol/L (22-30); Chloride 100 mmol/L (98-107); Glucose 111 mg/dL (74-99); Magnesium 1.5 mg/dL (1.6-2.3); Non-African American GFR(CKD) 44 (>60 ml/min/1.73 sqM); Phosphorus 3.8 mg/dL (2.5-4.5); Sodium 142 mmol/L (137-145); Total Bilirubin 1.4 mg/dL (0.2-1.3); Total Protein 10.2 g/dL (6.3-8.2)
[2023-12-19] MEDS: PROPOFOL 10 MG/ML 20 ML VIAL IV ONE (06:00)
[2023-12-19] MEDS: PROPRANOLOL 1 MG/ML 1 ML VIAL IV STA (06:40)
[2023-12-19] MEDS: HYDROmorphone 1 MG/ML 1 ML SYRINGE IVP STA (06:41)
--- NOTE | 2023-12-19 06:55 | XR ---
EXAMINATION TYPE: XR pelvis AP view DATE OF EXAM: 12/19/2023 COMPARISON: None HISTORY: Foreign object in rectum TECHNIQUE: AP pelvis FINDINGS: There is a radiopaque foreign body within the midline pelvis. Small amount adjacent bowel g as may be present. Normal bowel gas in the lower abdomen within the field Osseous structures appear intact. IMPRESSION: 1. Radiopaque foreign body in the midline pelvis likely within the rectum. [facility], , 12/19/2023 6:52 AM
[2023-12-19 07:03] VITALS: BP 119/67; PULSE 109; RESP 18
== END 2023-12-19 07:10 | disposition home or self-care (01) ==
LOC: EC 05:02
CPT/HCPCS: 10120; 36415; 72170; 80053; 83735; 84100; 85025; 93005; 96361; 96372; 96374; 96375; 99284

== ENCOUNTER 2023-12-19 11:11 | Emergency (ER) | payer MEDICARE, OTHER ==
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
[2023-12-19 12:34] VITALS: BP 138/87; PULSE 110; RESP 20; TEMP 98
== END 2023-12-19 12:34 | disposition home or self-care (01) ==
LOC: EC 11:11
CPT/HCPCS: 99285